=== PATIENT | female | born 1955 | race Caucasian/White ===

== ENCOUNTER 2020-11-11 16:57 | Inpatient (IN) | payer OTHER, SELFPAY ==
[2020-11-11] VITALS (11 sets, daily range): BP systolic 114–193; BP diastolic 62–114; PULSE 49–111; RESP 16–27; TEMP 36.3–36.6; O2SAT 95–100; BMI 23.1
--- NOTE | 2020-11-11 17:32 | ED_ITS ---
HPI - Neuro Symptoms/Deficit General Chief Complaint: Neuro Symptoms/Deficit Stated Complaint: REALLY DIZZY NUMBNESS RIGHT SIDE THROWING UP Time Seen by Provider: 11/11/20 17:30 History of Present Illness HPI Narrative: Patient is a 64-year-old female with no past medical history who presents with sudden onset of dizziness started right at 3:00 p.m. she said they got to their [place] states she started walking around she suddenly felt dizzy lightheaded very nauseous and right-sided weakness. No prior history of stroke or vertigo. She feels like her whole right side face arm and leg are numb tingly with decreased sensation. She is had been persistently nauseous with vomiting as well. She is otherwise alert and oriented. Last Observed Normal: 15:00 Timing confirmed by: spouse On Anticoagulants: No Related Data Allergies Allergy/AdvReac Type Severity Reaction Status Date / Time No Known Drug Allergies Allergy Verified 11/11/20 17:43 Review of Systems Review of Systems Narrative: GENERAL: Denies chills, fatigue, malaise, fever, sweats, travel HEENT: Denies sinus pain, ear pain, sore throat, difficulty swallowing, neck pain RESPIRATORY: Denies dyspnea, cough, wheezing, hemoptysis, sputum. CARDIOVASCULAR: Denies chest pain, palpitations, orthopnea, edema GASTROINTESTINAL: Denies nausea, vomiting, abdominal pain, diarrhea, constipation, melena. : Denies dysuria, frequency, incontinence, hematuria, urinary retention, flank pain. MUSCULOSKELETAL: Denies weakness, joint pain, or bony pain SKIN: No rash, no erythema, no pruritus NEUROLOGIC: See HPI PSYCHIATRIC: No concerning psychosocial issues. 12 point review of systems is negative except for those stated above and HPI Hematologic/Lymphatic On Anticoagulants: No Exam Initial Vital Signs Initial Vital Signs: Vital Signs Temperature 97.9 F 11/11/20 17:16 Pulse Rate 70 11/11/20 17:16 Respiratory Rate 16 11/11/20 17:16 Blood Pressure 172/102 H 11/11/20 17:16 Pulse Oximetry 97 11/11/20 17:16 64-year-old female appears un well. Nauseous difficulty keep eyes open HEENT: Head atraumatic,EOMI, no nystagmus, pupils reactive, face symmetric, moist mucous membranes CARDIOVASCULAR: Regular rate and rhythm without murmurs, rubs or gallops. RESPIRATORY: Breath sounds equal bilaterally, no wheezes rales or rhonchi. ABDOMEN: Soft, nontender. Normoactive bowel sounds all 4 quadrants. No guarding or rebound. EXTREMITIES: Normal range of motion, no clubbing or edema. Neurovascularly intact NEUROLOGICAL: Alert and oriented x4.Normal gait and speech. Cranial nerves II through XII grossly intact. Good ukwqns-fi-jnsr, good kwas-wk-iztq, strength equal bilaterally, no dysarthria or aphasia, sensation in tact to soft touch bilaterally, no visual changes, no facial droop, very slight right lower extremity drifting but does not come close to the gurney SKIN: Warm, dry, no laceration, no petechiae, no rashes or lesions. Scores NIH Stroke Scale Level of Conciousness: Alert, keenly responsive Ask month/age: Answers both questions correctly. Open/close eyes, close hand: Performs both tasks correctly Best gaze horizontal: Normal Visual ayers: No visual loss Facial palsy: Normal symetrical movement Left arm drift: No drift for full 10 sec Right arm drift: No drift for full 10 sec Left leg drift: No drift for full 5 sec Right leg drift: Drifts down, not to bed Limb ataxia: Absent Sensory on face/arms/legs: Normal, no sensory loss Best language: No aphasia, normal Dysarthria: Normal Extinction or inattention: No abnormality Total NIH Stroke scale score: 1 Course Orders Ordered: ED Orders 11/11/20 17:[address] angio head and neck Stat Urine Drug Screen, Rapid Stat EKG-12 Lead Stat 11/11/20 17:34 Complete Blood Count AUTO DIFF Stat Comprehensive Metabolic Panel Stat Partial Thromboplastin Time Stat Prothrombin Time INR Stat Troponin & CK Cardiac Panel Stat 11/11/20 17:41 MR stroke Stat 11/11/20 19:29 COVID19 - ADMIT ([employer] swab/PCR) Stat Sodium Chloride (Normal Saline 0.9%) 1,000 mls @ 150 mls/hr IV CONT MARIO Last Admin: 11/11/20 18:28 Dose: 150 mls/hr Documented by: KLEVER Discontinued Medications Labetalol HCl (Labetalol 20 Mg/4 Ml Syringe) 10 mg IV NOW ONE Stop: 11/11/20 18:41 Last Admin: 11/11/20 18:44 Dose: 10 mg Documented by: KLEVER Lorazepam (Lorazepam 2 Mg/Ml Inj) 0.5 mg IV NOW ONE Stop: 11/11/20 18:49 Last Admin: 11/11/20 19:07 Dose: 0.5 mg Documented by: GAURANG Ondansetron HCl (Ondansetron 4 Mg/2 Ml Inj) 4 mg IV NOW ONE Stop: 11/11/20 17:32 Last Admin: 11/11/20 17:43 Dose: 4 mg Documented by: CHARLOTTE Vital Signs Vital signs: Vital Signs - 8 hr 11/11/20 17:16 11/11/20 18:44 Temperature 97.9 F Pulse Rate 70 66 Respiratory Rate 16 Blood Pressure 172/102 H 175/114 H Pulse Oximetry 97 MDM - Neuro Symptoms/Deficit Lab Data Result diagrams: 11/11/20 17:34 11/11/20 17:34 Labs: Lab Results 11/11/20 11/11/20 11/11/20 Range/Units 17:34 17:34 17:34 WBC 5.3 (4.5-11.0) X10^3/uL RBC 5.00 (4.0-5.2) X10^6/uL Hgb 14.6 (12.0-16.0) g/dL Hct 42.4 (36-46) % MCV 84.8 (80-100) fL MCH 29.2 (26-34) PG MCHC 34.4 (30-36) % RDW 13.2 (11.6-14.8) % Plt Count 226 (150-400) X10^3/uL Neut % (Auto) 60.2 (50-75) % Lymph % (Auto) 28.3 (25-40) % [place] % (Auto) 8.4 (3-14) % Eos % (Auto) 1.9 L (2-4) % Baso % (Auto) 1.2 (0-2) % Neut # (Auto) 3200 (5789-2733) /uL Lymph # (Auto) 1500 (6104-6288) /uL [place] # (Auto) 400 (0-900) /uL Eos # (Auto) 100 (0-450) /uL Baso # (Auto) 100 (0-100) /uL PT 11.6 (10.1-12.7) SECONDS INR 1.0 (0.9-1.3) APTT 31 (26.4-36.2) SECONDS Sodium 141 (137-145) mmol/L Potassium 3.4 (3.4-5.1) mmol/L Chloride 106 (98-107) mmol/L Carbon Dioxide 25 (22-32) mmol/L BUN 10 (7-17) mg/dL Creatinine 0.66 (0.52-1.04) mg/dL Estimated GFR > 60.0 (>60) mL/min BUN/Creatinine Ratio 15.2 (6-22) Glucose 119 H (80-110) mg/dL Calcium 9.7 (8.4-10.2) mg/dL Total Bilirubin 0.6 (0.2-1.3) mg/dL AST 27 (14-36) IU/L ALT 17 (<35) IU/L Alkaline Phosphatase 112 (38-126) U/L Total Creatine Kinase 82 (30-135) U/L CK-MB (CK-2) TNP CK-MB (CK-2) Rel Index TNP Troponin I < 0.012 (0.01-0.034) ng/mL Total Protein 7.6 (6.3-8.2) g/dL Albumin 4.5 (3.5-5.0) g/dL Globulin 3.1 (1.7-4.1) g/dL Albumin/Globulin Ratio 1.5 (1.0-2.8) Point of Care Testing Glucose POC [address] scan - head: Radiologist's Impression: PROCEDURE: CT STROKE INDICATIONS: dizzy right sided weakness TECHNIQUE: Noncontrast 4.5 mm thick angled axial sections acquired from the foramen magnum to the vertex, with coronal reformats. For radiation dose reduction, the following was used: automated exposure control, adjustment of mA and/or kV according to patient size. COMPARISON: None. FINDINGS: Image quality: Excellent. CSF spaces: Basal cisterns are patent. No extra-axial fluid collections. The ventricles are symmetric in size and shape. Brain: No intracranial bleeds or masses. There is cerebral volume loss for age, with resultant ventricular and sulcal prominence. There are periventricular and deep white matter chronic small vessel ischemic changes. There is intracranial internal carotid artery atherosclerosis. Skull and face: Calvarium and visualized facial bones appear intact, without suspicious lesions. Sinuses: Visualized sinuses and mastoids are clear. IMPRESSION: 1. CT head without acute intracranial abnormalities or acute calvarial fractures. 2. Age-related senescent changes and sequela of chronic small vessel ischemic disease. This study fulfills neurological imaging criteria for inclusion or exclusion of acute stroke therapies based on available published neurological guidelines. Findings were discussed telephonically with Dr. Rosales at 1800 hrs. PST. Dictated by: Carrillo Hummel M.D. on 11/11/2020 at 17:59 CTA - brain/neck: Radiologist's Impression: PROCEDURE: CT ANGIO HEAD AND NECK INDICATIONS: dizzy right sided weakness TECHNIQUE: After the administration of intravenous contrast, 1 mm thick sections acquired from the aortic arch through the [place]. Post-contrast 4.5 mm thick sections then re-acquired from the foramen magnum to the vertex. 3-dimensional zvkvfab-mczpnjgrv-yorgisolwy (MIP) and/or volume rendering reformats were acquired of the central intracranial vasculature and neck separately. COMPARISON: None. FINDINGS: Image quality: Excellent. BRAIN: CSF spaces: Ventricles are stable in size and shape. Basal cisterns are patent. No extra-axial fluid collections. Brain: No midline shift. No intracranial bleeds or masses. [place]-white matter interface appears intact. Skull and face: Calvarium and facial bones appear intact, without suspicious lesions. Orbits appear normal. Sinuses: Sinuses and mastoids are clear. HEAD CT ANGIOGRAPHY: Anterior circulation: Intracranial internal carotid arteries appear patent without high-grade stenosis. There is flow/opacification within the paired anterior cerebral arteries. The flow within the middle cerebral arteries appears normal and symmetric. The anterior communicating artery is seen. No aneurysms are seen. No occlusion. Scattered atherosclerotic calcifications. Posterior circulation: Visualized portions of the vertebral arteries are patent and join to form a normal appearing basilar artery. No evidence for high-grade stenosis. No occlusions. There is opacification of the posterior cerebral arteries. No aneurysms are seen. NECK CT ANGIOGRAPHY: Carotid system: The great vessels demonstrate a conventional anatomy as they arise from the aortic arch. The origins of the common carotid arteries appear patent. The common carotid arteries demonstrate normal caliber and courses. The bifurcation regions are both widely patent. The internal carotid arteries demonstrate normal calibers and courses. Posterior circulation: There is high-grade stenosis at the origin of the left vertebral artery. Left vertebral artery is otherwise opacified. Origin of the right vertebral artery is widely patent. Right vertebral artery is well opacified. The more superior extracranial portions of both vertebral arteries also demonstrate normal courses and calibers. They join to form a normal appearing basilar artery. Soft tissues: Visualized neck soft tissues demonstrate no suspicious abnormalities. Bones: No suspicious bony lesions. Visualized cervical spine appears normally aligned. No acute compression fractures of the vertebral bodies. Multilevel cervical spondylosis. IMPRESSION: 1. Negative CT angiogram of the intracranial arterial vasculature. 2. High-grade stenosis at the origin of the left vertebral artery off the left subclavian artery. The left vertebral artery is otherwise opacified distally. 3. Otherwise, negative CT angiogram of the neck. Any quantitative measurements of stenosis were performed using NASCET criteria. Findings were discussed with Dr. Rosales at 1815 hrs. Dictated by: Carrillo Hummel M.D. on 11/11/2020 at 18:04 Approved by: Carrillo Hummel M.D. on 11/11/2020 at 18:18 MR stroke: Radiologist's Impression: PROCEDURE: MR STROKE Pre- and post-contrast brain MRI, non-contrast brain MR angiogram, pre- and po stcontrast neck MR angiogram INDICATIONS: dizzy right sided weakness TECHNIQUE: Brain: Noncontrast axial T1 spin echo, axial T2 fast spin echo, sagittal and axial FLAIR, coronal T2 fast spin echo, axial gradient echo, axial diffusion and ADC through the brain. After the administration of contrast, axial 3D VIBE of the cranial vasculature and brain. Brain MRA: Non-contrast 3-D time of flight MR angiogram, with multiple vicmeal-yoklnlpfb-jqestleovl (MIP) reformats performed. Neck MRA: Axial and sagittal TruFISP through the neck. Coronal dynamic MR angiogram during administration of contrast in the arterial and venous phases, with 3- dimenstional tnvlmmc-dlejxsnop-xofeakeksf (MIP) reformats constructed from subtraction images. COMPARISON: [facility], CT, CT ANGIO HEAD AND NECK, 11/11/2020, 17:34. FINDINGS: Image quality: Excellent. BRAIN: CSF spaces: Ventricles are normal in size and shape. Basal cisterns are patent. No extra-axial fluid collections. Brain: No intracranial bleeds or mass effects. [place]-white matter interface is normal. Diffusion weighted images show no acute ischemic insults. Brainstem appears normal. Normal intravascular flow voids are present. No abnormal intracranial enhancement. Skull and face: Calvarial marrow signal is normal. Orbits appear normal. Sinuses: Sinuses and mastoids are clear. BRAIN MR ANGIOGRAM: Anterior circulation: Intracranial internal carotid arteries are normal in size and enhancement. The flow within the paired anterior cerebral arteries is normal and symmetric. The flow within the middle cerebral arteries is normal and symmetric. The anterior communicating artery is seen. No high-grade stenoses, occlusions, or aneurysms. Posterior circulation: The visualized portions of the right vertebral artery demonstrate normal caliber, and join to form a normal appearing basilar artery. There is normal variant termination of the V4 segment as it communicates directly with segments of the posterior inferior cerebellar artery. No high-grade stenoses, occlusions, or aneurysms. NECK MR ANGIOGRAM: Carotids: Great vessels demonstrate a conventional anatomy as they arise from the aortic arch. The origins of the common carotid arteries appear patent. The calibers and courses of both common carotid arteries are normal. The bifurcation regions appear normal bilaterally. The internal carotid arteries demonstrate normal course and caliber. Posterior circulation: The origins of the vertebral arteries appear patent with mild to moderate stenosis at the origin of the left vertebral artery. There is also mild tortuosity of the proximal left vertebral artery just distal to the origin. More superior portions of both vertebral arteries demonstrate normal course and caliber, with the right vertebral artery joining to form a normal appearing basilar artery. The distal left vertebral artery/V4 segment demonstrates normal variant anatomy terminating directly with branches off the left posterior inferior cerebellar artery. Miscellaneous: Subclavian arteries appear patent. Pre-contrast images through the neck show no soft tissue abnormalities. IMPRESSION: BRAIN MRI: Negative brain MRI. No acute infarction/ischemia. BRAIN MR ANGIOGRAM: Negative MRA of the intracranial arterial vasculature. NECK MR ANGIOGRAM: Significant stenosis (50-70%) involving the origin of the left vertebral artery and proximal left vertebral artery. There is a dominant right vertebral artery with normal variant distal left vertebral artery terminating directly into branches off the left posterior inferior cerebellar artery. Dictated by: Carrillo Hummel M.D. on 11/11/2020 at 18:30 ECG Data Interpretation: Normal sinus rhythm rate 59 DC interval 152 QRS [address] changes or T-wave inversions no priors to compare MDM Narrative Medical decision making narrative: Patient presents as code stroke with dizziness weakness and difficulty standing. She has no real history of vertigo in the past. She has some right lower extremity drifting very minimal. But certainly has difficulty standing and ambulating and requires assistance. Differential included posterior stroke versus vertigo. NIH of 1--she actually has equal sensation to lower extremities but feels like they are numb and tingly. 1818-discussed case with Neurology, Dr. Valverde, she is certainly within the tPA window, however after neurology evaluation symptoms are more likely to be vertigo patient does not want tPA. She does recommend observation specially with the vertebral artery stenosis of 50-70%. The patient is also from out of town [place] no close follow-up they are going on the [place] to [place] later this week. Doctors Stickle updated patient's symptoms test results agree with observation Discharge Plan Departure Patient Disposition: Admitted as Observation Clinical Impression: Transient cerebral ischemia, Vertigo
--- NOTE | 2020-11-11 17:41 | DI.MRI.S_ITS ---
PROCEDURE: MR STROKE Pre- and post-contrast brain MRI, non-contrast brain MR angiogram, pre- and postcontrast neck MR angiogram INDICATIONS: dizzy right sided weakness TECHNIQUE: Brain: Noncontrast axial T1 spin echo, axial T2 fast spin echo, sagittal and axial FLAIR, coronal T2 fast spin echo, axial gradient echo, axial diffusion and ADC through the brain. After the administration of contrast, axial 3D VIBE of the cranial vasculature and brain. Brain MRA: Non-contrast 3-D time of flight MR angiogram, with multiple lliejdm-zilndelvy-aoutzzbnan (MIP) reformats performed. Neck MRA: Axial and sagittal TruFISP through the neck. Coronal dynamic MR angiogram during administration of contrast in the arterial and venous phases, with 3-dimenstional vchrrdo-shgntunij-eesltexekd (MIP) reformats constructed from subtraction images. COMPARISON: [facility], CT, CT ANGIO HEAD AND NECK, 11/11/2020, 17:34. FINDINGS: Image quality: Excellent. BRAIN: CSF spaces: Ventricles are normal in size and shape. Basal cisterns are patent. No extra-axial fluid collections. Brain: No intracranial bleeds or mass effects. [place]-white matter interface is normal. Diffusion weighted images show no acute ischemic insults. Brainstem appears normal. Normal intravascular flow voids are present. No abnormal intracranial enhancement. Skull and face: Calvarial marrow signal is normal. Orbits appear normal. Sinuses: Sinuses and mastoids are clear. BRAIN MR ANGIOGRAM: Anterior circulation: Intracranial internal carotid arteries are normal in size and enhancement. The flow within the paired anterior cerebral arteries is normal and symmetric. The flow within the middle cerebral arteries is normal and symmetric. The anterior communicating artery is seen. No high-grade stenoses, occlusions, or aneurysms. Posterior circulation: The visualized portions of the right vertebral artery demonstrate normal caliber, and join to form a normal appearing basilar artery. There is normal variant termination of the V4 segment as it communicates directly with segments of the posterior inferior cerebellar artery. No high-grade stenoses, occlusions, or aneurysms. NECK MR ANGIOGRAM: Carotids: Great vessels demonstrate a conventional anatomy as they arise from the aortic arch. The origins of the common carotid arteries appear patent. The calibers and courses of both common carotid arteries are normal. The bifurcation regions appear normal bilaterally. The internal carotid arteries demonstrate normal course and caliber. Posterior circulation: The origins of the vertebral arteries appear patent with mild to moderate stenosis at the origin of the left vertebral artery. There is also mild tortuosity of the proximal left vertebral artery just distal to the origin. More superior portions of both vertebral arteries demonstrate normal course and caliber, with the right vertebral artery joining to form a normal appearing basilar artery. The distal left vertebral artery/V4 segment demonstrates normal variant anatomy terminating directly with branches off the left posterior inferior cerebellar artery. Miscellaneous: Subclavian arteries appear patent. Pre-contrast images through the neck show no soft tissue abnormalities. IMPRESSION: BRAIN MRI: Negative brain MRI. No acute infarction/ischemia. BRAIN MR ANGIOGRAM: Negative MRA of the intracranial arterial vasculature. NECK MR ANGIOGRAM: Significant stenosis (50-70%) involving the origin of the left vertebral artery and proximal left vertebral artery. There is a dominant right vertebral artery with normal variant distal left vertebral artery terminating directly into branches off the left posterior inferior cerebellar artery. Dictated by: Carrillo Hummel M.D. on 11/11/2020 at 18:30 Approved by: Carrillo Hummel M.D. on 11/11/2020 at 18:44
[2020-11-11] MEDS: ONDANSETRON 4 MG/2 ML INJ IV (17:43)
[2020-11-11 17:47] LABS: Add Manual Diff / Slide Review NO; Basophils Absolute Auto 100 /uL (0-100); Basophils Percent Auto 1.2 % (0-2); Eosinophils Absolute Auto 100 /uL (0-450); Eosinophils Percent Auto 1.9 % (2-4); Hematocrit 42.4 % (36-46); Hemoglobin 14.6 g/dL (12.0-16.0); Lymphocytes Absolute Auto 1500 /uL (1100-4500); Lymphocytes Percent Auto 28.3 % (25-40); Mean Corpuscular HGB Conc 34.4 % (30-36); Mean Corpuscular Hemoglobin 29.2 PG (26-34); Mean Corpuscular Volume 84.8 fL (80-100); Monocytes Absolute Auto 400 /uL (0-900); Monocytes Percent Auto 8.4 % (3-14); Neutrophils Absolute Auto 3200 /uL (1500-7000); Neutrophils Percent Auto 60.2 % (50-75); Platelet Count 226 X10^3/uL (150-400); Red Cell Distribution Width 13.2 % (11.6-14.8); White Blood Cell Count 5.3 X10^3/uL (4.5-11.0)
[2020-11-11 17:58] LABS: Prothrombin Time 11.6 SECONDS (10.1-12.7)
[2020-11-11 18:01] LABS: PTT Partial Thromboplastin Tim 31 SECONDS (26.4-36.2)
[2020-11-11 18:05] LABS: Alanine Aminotransferase 17 IU/L (<35); Albumin 4.5 g/dL (3.5-5.0); Albumin Globulin Ratio 1.5 (1.0-2.8); Alkaline Phosphatase 112 U/L (38-126); Aspartate Aminotransferase 27 IU/L (14-36); BUN Creatinine Ratio 15.2 (6-22); Bilirubin Total 0.6 mg/dL (0.2-1.3); Blood Urea Nitrogen 10 mg/dL (7-17); Calcium 9.7 mg/dL (8.4-10.2); Carbon Dioxide 25 mmol/L (22-32); Chloride 106 mmol/L (98-107); Creatine Kinase 82 U/L (30-135); Estimated Glomerular Filt Rate > 60.0 mL/min (>60); Globulin 3.1 g/dL (1.7-4.1); Glucose 119 mg/dL (80-110); HEMOLYSIS < 15 (0-50); Potassium 3.4 mmol/L (3.4-5.1); Sodium 141 mmol/L (137-145); Total Protein 7.6 g/dL (6.3-8.2)
[2020-11-11 18:16] LABS: Troponin I < 0.012 ng/mL (0.01-0.034)
[2020-11-11] MEDS: SODIUM CHLORIDE 0.9% 1,000 ML 150 ML IV (18:28)
[2020-11-11] MEDS: ONDANSETRON 4 MG/2 ML INJ (18:36)
[2020-11-11] MEDS: LABETALOL 20 MG/4 ML SYRINGE 10 MG IV (18:44)
[2020-11-11] MEDS: LORazepam 2 MG/ML INJ 0.5 MG IV ×2 (19:07→22:15)
[2020-11-11] MEDS: METOCLOPRAMIDE 10 MG/2 ML INJ IV (19:56)
[2020-11-11] MEDS: PANTOPRAZOLE 40 MG VIAL IV (19:56)
--- NOTE | 2020-11-11 20:15 | PM.HP.1 ---
History of Present Illness History of Present Illness Date Patient Seen: 11/11/20 Time Patient Seen: 20:15 Chief complaint: REALLY DIZZY NUMBNESS RIGHT SIDE THROWING UP Narrative: This is a 64 year old female with no significant PMH who presents to the ED this evening with intractable N/V and Vertigo. She is also having some right arm weakness so the immediate concern was that she might be having a brainstem CVA. The onset was quite acute, while she was walking around her camp site at 4:00 p.m. today she was suddenly exquisitely nauseated and mildly vertiginous. Her brain MRI and CT scan shows no evidence of stroke. 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 Her mother had a stroke when she was much older. She has a strong family history of hyperlipidemia but she has no past medical history herself. She and her have been on the road camping from their home in [place] on the way to [place] this summer when they stopped here and she became ill. She has never had a stroke, hypertension, known to have hyperlipidemia or coronary disease in the past. She has been dosed with metoclopramide, meclizine, lorazepam, ondansetron without resolution of her nausea. Lorazepam seemed to be the most effective as she did look relaxed and asleep although she says that she never did fall asleep. The emergency department physician did speak with the on-call stroke neurologist who initially considered tPA but then after reviewing her exam decided that she should be observed tonight, receive aspirin and be treated as an acute vertigo patient. She has had no abdominal pain, diarrhea, GI bleeding or excess alcohol use. She had half a beer today at lunch and 1 beer yesterday. Her habit is an occasional beer or glass of wine. Patient History Medical History (Updated 11/11/20 @ 20:27 by Bj Mcgregor MD) No significant past medical history Surgical History (Updated 11/11/20 @ 20:27 by Bj Mcgregor MD) No significant past surgical history Family & Social History Family History (Updated 11/11/20 @ 20:28 by Bj Mcgregor MD) Mother CVA (cerebral vascular accident) Father CAD (coronary artery disease) Hip fracture Other Hyperlipidemia Social History: Her backup decision maker is her Bryce Matthew. Safety & Behavioral: Feels Safe in Current Yes Environment Been Physically Hurt or No Threatened By a Person Meds Home Medications and Allergies Allergies Allergy/AdvReac Type Severity Reaction Status Date / Time No Known Drug Allergies Allergy Verified 11/11/20 17:43 Review of Systems Review of Systems Narrative: + for Vertigo, lightheadedness and right arm tingling - for Chest Pain, Abdominal Pain, Bleeding, Headache, Seizures, joint pain, sore throat, cough, fevers, sweats, new allergies, difficulty talking Exam Vital Signs (past 8 hours): - 11/11/20 17:16 11/11/20 18:30 11/11/20 18:44 Temperature 97.9 F Pulse Rate 70 98 H 66 Respiratory Rate 16 16 Blood Pressure 172/102 H 175/114 H 175/114 H Pulse Oximetry 97 97 11/11/20 19:34 11/11/20 19:50 Temperature Pulse Rate 50 L 63 Respiratory Rate 16 Blood Pressure 146/95 H 146/95 H Pulse Oximetry 98 Oxygen Delivery Method Room Air Narrative Exam Narrative: She is alert and oriented x3. She appears to be in severe distress from nausea and mild vertigo. Pupils are equally round and reactive to light and accommodation. Extraocular muscles are intact Sclerae are pink and nonicteric Throat looks normal and is well hydrated No lymph nodes are felt head, neck, supraclavicular area JVD is less than 6 cm No carotid bruits are heard There is no thyromegaly Heart is regular rate and rhythm without murmur Lungs are clear to auscultation bilaterally Abdomen is soft, bowel sounds positive, nontender, no organomegaly. Extremities have no ankle edema neurological exam Cranial nerves 2-12 test intact, there is no tremor Sensation is symmetric in both upper and lower extremities Babinski's are upgoing bilaterally Deep tendon reflexes are symmetrically suppressed bilaterally Motor function is notable for 4/5 celebrity manager strength in the right hand and 5/5 in the left hand. There is no similar asymmetry in the lower extremities. Skin has no rash or jaundice. Objective Imaging MRI - head: Radiologist's impression: PROCEDURE: MR STROKE Pre- and post-contrast brain MRI, non-contrast brain MR angiogram, pre- and postcontrast neck MR angiogram INDICATIONS: dizzy right sided weakness TECHNIQUE: Brain: Noncontrast axial T1 spin echo, axial T2 fast spin echo, sagittal and axial FLAIR, coronal T2 fast spin echo, axial gradient echo, axial diffusion and ADC through the brain. After the administration of contrast, axial 3D VIBE of the cranial vasculature and brain. Brain MRA: Non-contrast 3-D time of flight MR angiogram, with multiple zbhmefe-fwsxdhtth-cwjoskhfru (MIP) reformats performed. Neck MRA: Axial and sagittal TruFISP through the neck. Coronal dynamic MR angiogram during administration of contrast in the arterial and venous phases, with 3-dimenstional owzgeiq-mbfbrgugc-aawxoenevi (MIP) reformats constructed from subtraction images. COMPARISON: [facility], CT, CT ANGIO HEAD AND NECK, 11/11/2020, 17:34. FINDINGS: Image quality: Excellent. BRAIN: CSF spaces: Ventricles are normal in size and shape. Basal cisterns are patent. No extra-axial fluid collections. Brain: No intracranial bleeds or mass effects. Ruvalcaba-white matter interface is normal. Diffusion weighted images show no acute ischemic insults. Brainstem appears normal. Normal intravascular flow voids are present. No abnormal intracranial enhancement. Skull and face: Calvarial marrow signal is normal. Orbits appear normal. Sinuses: Sinuses and mastoids are clear. BRAIN MR ANGIOGRAM: Anterior circulation: Intracranial internal carotid arteries are normal in size and enhancement. The flow within the paired anterior cerebral arteries is normal and symmetric. The flow within the middle cerebral arteries is normal and symmetric. The anterior communicating artery is seen. No high-grade stenoses, occlusions, or aneurysms. Posterior circulation: The visualized portions of the right vertebral artery demonstrate normal caliber, and join to form a normal appearing basilar artery. There is normal variant termination of the V4 segment as it communicates directly with segments of the posterior inferior cerebellar artery. No high-grade stenoses, occlusions, or aneurysms. NECK MR ANGIOGRAM: Carotids: Great vessels demonstrate a conventional anatomy as they arise from the aortic arch. The origins of the common carotid arteries appear patent. The calibers and courses of both common carotid arteries are normal. The bifurcation regions appear normal bilaterally. The internal carotid arteries demonstrate normal course and caliber. Posterior circulation: The origins of the vertebral arteries appear patent with mild to moderate stenosis at the origin of the left vertebral artery. There is also mild tortuosity of the proximal left vertebral artery just distal to the origin. More superior portions of both vertebral arteries demonstrate normal course and caliber, with the right vertebral artery joining to form a normal appearing basilar artery. The distal left vertebral artery/V4 segment demonstrates normal variant anatomy terminating directly with branches off the left posterior inferior cerebellar artery. Miscellaneous: Subclavian arteries appear patent. Pre-contrast images through the neck show no soft tissue abnormalities. IMPRESSION: BRAIN MRI: Negative brain MRI. No acute infarction/ischemia. BRAIN MR ANGIOGRAM: Negative MRA of the intracranial arterial vasculature. NECK MR ANGIOGRAM: Significant stenosis (50-70%) involving the origin of the left vertebral artery and proximal left vertebral artery. There is a dominant right vertebral artery with normal variant distal left vertebral artery terminating directly into branches off the left posterior inferior cerebellar artery. Dictated by: Carrillo Hummel M.D. on 11/11/2020 at 18:30 CT scan - head: Radiologist's impression: PROCEDURE: CT ANGIO HEAD AND NECK INDICATIONS: dizzy right sided weakness TECHNIQUE: After the administration of intravenous contrast, 1 mm thick sections acquired from the aortic arch through the [place] of [place]. Post-contrast 4.5 mm thick sections then re-acquired from the foramen magnum to the vertex. 3-dimensional xnjojfk-babhbhbur-eluupslsmv (MIP) and/or volume rendering reformats were acquired of the central intracranial vasculature and neck separately. COMPARISON: None. FINDINGS: Image quality: Excellent. BRAIN: CSF spaces: Ventricles are stable in size and shape. Basal cisterns are patent. No extra-axial fluid collections. Brain: No midline shift. No intracranial bleeds or masses. Ru[place]-white matter interface appears intact. Skull and face: Calvarium and facial bones appear intact, without suspicious lesions. Orbits appear normal. Sinuses: Sinuses and mastoids are clear. HEAD CT ANGIOGRAPHY: Anterior circulation: Intracranial internal carotid arteries appear patent without high-grade stenosis. There is flow/opacification within the paired anterior cerebral arteries. The flow within the middle cerebral arteries appears normal and symmetric. The anterior communicating artery is seen. No aneurysms are seen. No occlusion. Scattered atherosclerotic calcifications. Posterior circulation: Visualized portions of the vertebral arteries are patent and join to form a normal appearing basilar artery. No evidence for high-grade stenosis. No occlusions. There is opacification of the posterior cerebral arteries. No aneurysms are seen. NECK CT ANGIOGRAPHY: Carotid system: The great vessels demonstrate a conventional anatomy as they arise from the aortic arch. The origins of the common carotid arteries appear patent. The common carotid arteries demonstrate normal caliber and courses. The bifurcation regions are both widely patent. The internal carotid arteries demonstrate normal calibers and courses. Posterior circulation: There is high-grade stenosis at the origin of the left vertebral artery. Left vertebral artery is otherwise opacified. Origin of the right vertebral artery is widely patent. Right vertebral artery is well opacified. The more superior extracranial portions of both vertebral arteries also demonstrate normal courses and calibers. They join to form a normal appearing basilar artery. Soft tissues: Visualized neck soft tissues demonstrate no suspicious abnormalities. Bones: No suspicious bony lesions. Visualized cervical spine appears normally aligned. No acute compression fractures of the vertebral bodies. Multilevel cervical spondylosis. IMPRESSION: 1. Negative CT angiogram of the intracranial arterial vasculature. 2. High-grade stenosis at the origin of the left vertebral artery off the left subclavian artery. The left vertebral artery is otherwise opacified distally. 3. Otherwise, negative CT angiogram of the neck. Any quantitative measurements of stenosis were performed using NASCET criteria. Findings were discussed with Dr. Rosales at 1815 hrs. Dictated by: Carrillo Hummel M.D. on 11/11/2020 at 18:04 Labs Result Diagrams: 11/11/20 17:34 11/11/20 17:34 Labs: Laboratory Results - last 24 hr 11/11/20 11/11/20 11/11/20 17:34 17:34 17:34 WBC 5.3 RBC 5.00 Hgb 14.6 Hct 42.4 MCV 84.8 MCH 29.2 MCHC 34.4 RDW 13.2 Plt Count 226 Neut % (Auto) 60.2 Lymph % (Auto) 28.3 Wise % (Auto) 8.4 Eos % (Auto) 1.9 L Baso % (Auto) 1.2 Neut # (Auto) 3200 Lymph # (Auto) 1500 Wise # (Auto) 400 Eos # (Auto) 100 Baso # (Auto) 100 PT 11.6 INR 1.0 APTT 31 Sodium 141 Potassium 3.4 Chloride 106 Carbon Dioxide 25 BUN 10 Creatinine 0.66 Estimated GFR > 60.0 BUN/Creatinine Ratio 15.2 Glucose 119 H Calcium 9.7 Total Bilirubin 0.6 AST 27 ALT 17 Alkaline Phosphatase 112 Total Creatine Kinase 82 CK-MB (CK-2) TNP CK-MB (CK-2) Rel Index TNP Troponin I < 0.012 Total Protein 7.6 Albumin 4.5 Globulin 3.1 Albumin/Globulin Ratio 1.5 Assessment & Plan Assessment & Plan narrative: This is a 64 year old female with no significant PMH who presents to the ED this evening with intractable N/V and Vertigo. She also has mild right arm weakness. Severe Nausea -Continue Obervation with concern for Severe Vertigo or Brainstem CVA -No abdominal tenderness or pain. -Check Lipase. Alcohol intake is only 1/2 to 1 beer per day. -continue IV fluid support while on bowel rest. -continue lorazepam metoclopramide, ondansetron, meclizine, Phenergan as needed. -she has no history of marijuana use. She has no history of pancreatitis. She has no history of coronary disease and has had no chest pain. -troponin is less than 0.012. Order EKG. Acute Vertigo -Given Lorazepam and Meclizine without complete effect -IVF while NPO -no signs on imaging of brain stem CVA but that remains a concern with the notable right upper extremity assymmetric celebrity manager strength. 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 to give Aspirin and observe -tPA was considered and decided against. Left Vertebral Artery Stenosis -Lipids ordered -Aspirin and Lipitor ordered Her backup decision maker is her Bryce Matthew Her Covid test is pending She will be on Lovenox for DVT prevention
[2020-11-11] MEDS: MECLIZINE HCL 12.5 MG TABLET 50 MG PO (20:17)
[2020-11-11 20:27] LABS: Lipase 82 U/L (23-300)
[2020-11-11 20:33] LABS: COVID19 - ADMIT (NP swab/PCR) Negative (Negative)
[2020-11-11 20:35] LABS: Ur Creatinine Normal (Normal); Ur Specific Gravity Normal (Normal); Urine pH Normal (Normal)
[2020-11-11 20:36] LABS: UR Morphine/Opiate cutoff 300 Negative (Negative); Urine Amphetamines Negative (Negative); Urine Barbiturates Negative (Negative); Urine Benzodiazepines Negative (Negative); Urine Cocaine Negative (Negative); Urine MDMA Negative (Negative); Urine Methadone Negative (Negative); Urine Methamphetamines Negative (Negative); Urine Oxycodone Negative (Negative); Urine Phencyclidine Negative (Negative); Urine Tetrahydrocannabinol Negative (Negative); Urine Tricyclic Antidepressant Negative (Negative)
[2020-11-11 20:50] LABS: Bacteria Urine None Seen
[2020-11-11 21:22] LABS: Culture Indicated Urine Cult Not Indicated; RBC Urine 0-1/HPF (0-5/HPF); WBC Urine 0-1/HPF (0-5/HPF)
[2020-11-11] MEDS: DEXTROSE 5%-0.9% NS 1,000 ML 100 ML IV (21:30)
[2020-11-11] MEDS: ATORVASTATIN 20 MG TABLET 80 MG PO (22:17)
--- NOTE | 2020-11-11 23:15 | PC.NURSE ---
Admit/Evening Shift Note- Patiet arrived to room via stretcher from ER at 2115. Admit questions done, no home medications, physical assessment done, and skin check completed. Patient oriented to bed and bed controls, room, lights, phone, bathroom, and call graham/tv remote. PRN IV ativan given for nausea and dry heaves. Patient tolerated. Patient agrees to call for assistance. Safety measures in place. Call graham and phone within reach. will continue to monitor.
[2020-11-12 01:18] VITALS: BP 126/74; PULSE 57; RESP 18; TEMP 36.2; O2SAT 93
[2020-11-12] MEDS: METOCLOPRAMIDE 10 MG/2 ML INJ IV (01:25)
[2020-11-12] MEDS: PANTOPRAZOLE DR 20 MG TABLET PO (05:19)
[2020-11-12 05:40] VITALS: BP 132/77; PULSE 62; RESP 20; TEMP 36.2; O2SAT 98
[2020-11-12 05:51] LABS: Add Manual Diff / Slide Review NO; Basophils Absolute Auto 0 /uL (0-100); Basophils Percent Auto 0.4 % (0-2); Eosinophils Absolute Auto 0 /uL (0-450); Hematocrit 37.6 % (36-46); Lymphocytes Absolute Auto 900 /uL (1100-4500); Lymphocytes Percent Auto 16.1 % (25-40); Mean Corpuscular HGB Conc 34.5 % (30-36); Mean Corpuscular Hemoglobin 28.9 PG (26-34); Mean Corpuscular Volume 83.8 fL (80-100); Monocytes Absolute Auto 400 /uL (0-900); Monocytes Percent Auto 7.8 % (3-14); Neutrophils Absolute Auto 4000 /uL (1500-7000); Neutrophils Percent Auto 75.7 % (50-75); Platelet Count 236 X10^3/uL (150-400); Red Blood Cell Count 4.49 X10^6/uL (4.0-5.2); Red Cell Distribution Width 13.3 % (11.6-14.8); White Blood Cell Count 5.4 X10^3/uL (4.5-11.0)
[2020-11-12 06:01] LABS: Alanine Aminotransferase 14 IU/L (<35); Albumin 3.8 g/dL (3.5-5.0); Albumin Globulin Ratio 1.4 (1.0-2.8); Alkaline Phosphatase 77 U/L (38-126); Aspartate Aminotransferase 20 IU/L (14-36); BUN Creatinine Ratio 17.9 (6-22); Bilirubin Total 0.4 mg/dL (0.2-1.3); Blood Urea Nitrogen 10 mg/dL (7-17); Calcium 9.2 mg/dL (8.4-10.2); Carbon Dioxide 24 mmol/L (22-32); Chloride 109 mmol/L (98-107); Estimated Glomerular Filt Rate > 60.0 mL/min (>60); Globulin 2.7 g/dL (1.7-4.1); Glucose 142 mg/dL (80-110); HEMOLYSIS < 15 (0-50); Potassium 3.7 mmol/L (3.4-5.1); Sodium 140 mmol/L (137-145); Total Protein 6.5 g/dL (6.3-8.2)
[2020-11-12 06:11] LABS: Troponin I < 0.012 ng/mL (0.01-0.034)
[2020-11-12] MEDS: DEXTROSE 5%-0.9% NS 1,000 ML 100 ML IV (07:43)
[2020-11-12 08:27] VITALS: BP 126/78; PULSE 63; RESP 16; TEMP 36.6; O2SAT 96
--- NOTE | 2020-11-12 08:36 | DI.MRI.S_ITS ---
PROCEDURE: MR STROKE Pre- and post-contrast brain MRI, non-contrast brain MR angiogram, pre- and postcontrast neck MR angiogram INDICATIONS: stroke TECHNIQUE: Brain: Noncontrast axial T1 spin echo, axial T2 fast spin echo, sagittal and axial FLAIR, coronal T2 fast spin echo, axial gradient echo, axial diffusion and ADC through the brain. After the administration of contrast, axial 3D VIBE of the cranial vasculature and brain. Brain MRA: Non-contrast 3-D time of flight MR angiogram, with multiple cdsnljw-sriitydlk-btxxlwlcxb (MIP) reformats performed. Neck MRA: Axial and sagittal TruFISP through the neck. Coronal dynamic MR angiogram during administration of contrast in the arterial and venous phases, with 3-dimenstional pflksdu-ozsmmmypj-zbnwyyfnou (MIP) reformats constructed from subtraction images. COMPARISON: [facility], CT, CT ANGIO HEAD AND NECK, 11/11/2020, 17:34. [facility], MR, MR STROKE, 11/11/2020, 17:52. FINDINGS: Image quality: Excellent. BRAIN: The ventricular system and cortical sulci demonstrate atrophy, consistent for the patient's stated age. There are areas of increased T2/FLAIR signal intensity within the periventricular and subcortical white matter. There is no acute intra-or extra axial fluid collection. No acute hemorrhage, mass lesion or midline shift. Diffusion weighted images demonstrate hyperintense signal within the medulla/brainstem demonstrating hypointense ADC signal. While it is noted that there is ill-defined hypodensity within this region on the CT head exam of 11/11/2020, MRI on 11/11/2020 demonstrated a ill-defined, subtle restricted diffusion within this region without clearly visualized hypointense ADC signal. . BRAIN MR ANGIOGRAM: Anterior circulation: Intracranial internal carotid arteries are normal in size and enhancement. The flow within the paired anterior cerebral arteries is normal and symmetric. The flow within the middle cerebral arteries is normal and symmetric. The anterior communicating artery is seen. No stenoses, occlusions, or aneurysms. Posterior circulation: The visualized portions of the vertebral arteries demonstrate normal caliber, and join to form a normal appearing basilar artery. The flow within the posterior cerebral arteries is normal and symmetric. No stenoses, occlusions, or aneurysms. There is a right vertebral artery dominance. Left vertebral artery ends in PICA. There is loss of signal within a distal portion of the left vertebral artery unchanged compared to prior MRI. NECK MR ANGIOGRAM: Carotids: Great vessels demonstrate a conventional anatomy as they arise from the aortic arch. The origins of the common carotid arteries appear patent. The calibers and courses of both common carotid arteries are normal. The bifurcation regions appear normal bilaterally. The internal carotid arteries demonstrate normal course and caliber. Posterior circulation: The origins of the vertebral arteries appear patent. More superior portions of both vertebral arteries demonstrate normal course and caliber, and join to form a normal appearing basilar artery. Miscellaneous: Subclavian arteries appear patent. Pre-contrast images through the neck show no soft tissue abnormalities. IMPRESSION: 1. Prominent appearance of restricted diffusion within the medulla/brainstem consistent with acute ischemia appearing more prominent compared to prior exam. No superimposed hemorrhage. Given appearance of relative hypodensity within this region on CT head, this could represent a focus of new ischemia up on superimposed old infarction versus artifact in this region. 2. Decreased signal within the distal aspect of the left vertebral artery, unchanged from prior MRI of 11/11/2020. This could represent occlusion with distal reconstitution or slow flow. It is noted that flow is identified on CT neck of 11/11/2020. 3. No areas of hemodynamically significant stenosis, vascular occlusion or aneurysmal dilation within the neck vasculature. Dictated by: La Huerta M.D. on 11/12/2020 at 13:42 Approved by: La Huerta M.D. on 11/12/2020 at 14:08
--- NOTE | 2020-11-12 09:37 | PC.NURSE ---
Day shift: Pt back on AC unit at approx 0937 from MRI. BAck on tele, IV fluids, and SCD's in place. Call light in reach.
[2020-11-12] MEDS: ENOXAPARIN 40 MG/0.4 ML SYRINGE SUBCUT (09:49)
[2020-11-12] MEDS: ASPIRIN EC 81 MG TABLET PO (09:50)
--- NOTE | 2020-11-12 10:00 | DI.ECHO.S_ITS ---
[place] +---------+ [facility] +---------+ : : [address] : : : : [id number] : : : : Phone: [phone] Echocardiogram Report + + :Name: CAMILLE PRIETO Study Date: 11/12/2020 Height: 64 in : :[facility] ReadingLocation: Weight: 134 lb : : Gender: Female BSA: 1.6 m2 : :: 1955 Age: 64 yrs BP: 126/74 mmHg: :Reason For Study: CVA : :Ordering Physician: IDANIA, : :LOI Performed By: Ivory Ventura : :Referring: LOI EMERSON : + + Interpretation Summary The patient was in sinus bradycardia with heart rates between 54-60 bpm during the exam. The left ventricle is normal in size and wall thickness. The ejection fraction is estimated to be 60-65%. No obvious LV apical clot seen. The right ventricle is normal in size and function. Injection of contrast documented no interatrial shunt. There is mild tricuspid regurgitation. The right ventricular systolic pressure is estimated to be at least 29 mmHg based on an estimated right atrial pressure of 3 mm Hg. The ascending aorta is mildly enlarged. No significant atherosclerotic plaque in the aortic arch seen. Procedure: A two-dimensional transthoracic echocardiogram with color flow and Doppler was performed. The study quality was technically adequate. There is no prior echocardiogram noted for this patient. A saline contrast injection was performed to assess for cardiac shunting. The patient was in sinus bradycardia with heart rates between 54-60 bpm during the exam. Left Ventricle: The left ventricle is normal in size and wall thickness. There is no thrombus. The ejection fraction is estimated to be 60-65%. There are no focal wall motion abnormalities. MV E/A: 1.1 Med Peak E' Francisco Javier: 10.0 cm/sec E/E' med: 9.7. Right Ventricle: The right ventricle is normal in size and function. Atria: The left atrial size is normal. The right atrium is normal in size. Bubble study was captured on image frame(s) # 93. Injection of contrast documented no interatrial shunt. There is no Doppler evidence for an interatrial shunt. Mitral Valve: There is mild mitral annular calcification. There is trace mitral regurgitation. Aortic Valve: The aortic valve is trileaflet. The aortic valve opens well. The aortic valve is slightly calcified. There is no aortic valve stenosis. There is trace aortic regurgitation. Tricuspid Valve: The tricuspid valve is normal. There is mild tricuspid regurgitation. The right ventricular systolic pressure is estimated to be at least 29 mmHg based on an estimated right atrial pressure of 3 mm Hg. Pulmonic Valve: The pulmonic valve is not well seen, but is grossly normal. There is trace pulmonic regurgitation. Great Vessels: The aortic root is normal size. The ascending aorta is mildly enlarged. The IVC is of normal diameter and collapses greater than 50% with a sniff. This suggests a low right atrial pressure of 3 mm Hg. Pericardium/ Pleura There is no pericardial effusion. There is no pleural effusion. MMode/2D Measurements & Calculations LVIDd: 4.3 cm LVOT diam: 1.8 cm LVIDs: 2.7 cm Ao root diam: 3.3 cm FS: 36.8 % asc Aorta Diam: 3.7 cm IVSd: 0.80 cm Ao Arch Diam (Prox Trans): 3.1 cm LVPWd: 0.66 cm LV lopez. diameter/BSA (cm/m^2): 2.6 LV sys. diameter/BSA (cm/m^2): 1.7 LA A2 area: 14.3 cm2 RA long axis: 5.3 cm LA A4 area: 14.0 cm2 RA area: 15.3 cm2 LA length (vol): 4.8 cm RA vol: 37.8 ml LA vol: 35.0 ml RA : 22.9 ml/m2 LA vol index: 21.2 ml/m2 IVC diam: 1.7 cm RVD1 (basal): 3.2 cm TAPSE: 3.1 cm Doppler Measurements & Calculations Ao V2 max: 132.2 cm/sec LVOT Max Francisco Javier: 107.2 cm/sec Ao V2 mean: 92.4 cm/sec LV V1 max P.6 mmHg Ao max P.0 mmHg LV V1 VTI: 21.8 cm Ao mean P.8 mmHg ASHLEIGH(I,D): 1.8 cm2 Ao V2 VTI: 29.6 cm ASHLEIGH(V,D): 2.0 cm2 sev ratio: 0.74 ASHLEIGH indexed to BSA (cm^2/m^2): 1.1 MV E max francisco javier: 97.1 cm/sec TR max francisco javier: 253.7 cm/sec MV A max francisco javier: 86.6 cm/sec TR max P.8 mmHg MV E/A: 1.1 PA V2 max: 93.0 cm/sec Med Peak E' Francisco Javier: 10.0 cm/sec PA V2 mean: 60.2 cm/sec E/E' med: 9.7 PA mean P.7 mmHg Lat Peak E' Francisco Javier: 13.4 cm/sec PA pr(Accel): 31.0 mmHg E/E' lat: 7.3 E/e' average: 8.5 MV dec time: 0.18 sec SV(LVOT): 54.4 ml Reading Physician:01:28 PM
--- NOTE | 2020-11-12 10:59 | P.PN_ITS ---
Subjective Subjective Date Patient Seen: 11/12/20 Time Patient Seen: 08:00 Interval history: Patient initially seen at 8am. She tells me that at some point overnight, she can not say what time, she felt weakness on her right side. She could not move her right hand, her right leg. She started slurring speech, and felt her tongue was heavy. She was asked again what time this started and said some time in the middle of the night. No NIH performed overnight. She was ordered for aspirin and statin. Immediately I called telestroke and spoke with them at 830am, who recommended reimaging the head and neck vasculature. CT scan was down, so stat MRI was ordered. Spoke with Dr. Bentley at 10:20a, neuroradiologist, who notes there is a brainstem stroke. They note continued finding of vertebral artery stenosis on the left, but no other evidence of large artery stenosis or clot. Spoke with Dr. Zapien, teleroke, who recommended dual antiplatelet therapy, high dose statin, and agreed since her symptoms started yesterday afternoon she was outside window for TPA, and because she had good collateral flow from the other vertebral artery there is no indication for IR revascularization. Spoke with patient and about these findings. Otherwise she continues to have nausea and vertigo. Exam Vital Signs (past 8 hours): - 11/12/20 05:40 11/12/20 08:27 Temperature 97.1 F L 97.9 F Pulse Rate 62 63 Respiratory Rate 20 16 Blood Pressure 132/77 126/78 Pulse Oximetry 98 96 Oxygen Delivery Method Room Air Oxygen Flow Rate 0 Narrative Exam Narrative: GEN: no acute distress. HEENT: PERRL, moist mucous membranes NECK: trachea midline, no JVD CV: regular bradycardia, with no murmurs PULM: clear to auscultation bilaterally ABD: soft, bowel sounds positive, nontender, no organomegaly. EXT: wram and well perfused with no edema NEURO: patient has right sided facial droop, speech is slightly slurred, sensation in face is normal, and she is able to smile and close eyes with normal strength. Weakness in right shoulder 2/5, right upper extremity 1/5, right lower extremity 1/5. Can not lift extremities off bed, but can wriggle them slightly. Sensation diminished in right upper and lower extremity. Left upper and lower extremity with normal strength in upper and lower extremities with no drift noted SKIN: no rashes PSYCH: cooperative, pleasant Objective Labs Result Diagrams: 11/12/20 05:20 11/12/20 05:20 Labs: Laboratory Results - last 24 hr 11/11/20 11/11/20 11/11/20 17:34 17:34 17:34 WBC 5.3 RBC 5.00 Hgb 14.6 Hct 42.4 MCV 84.8 MCH 29.2 MCHC 34.4 RDW 13.2 Plt Count 226 Neut % (Auto) 60.2 Lymph % (Auto) 28.3 Humphreys % (Auto) 8.4 Eos % (Auto) 1.9 L Baso % (Auto) 1.2 Neut # (Auto) 3200 Lymph # (Auto) 1500 Humphreys # (Auto) 400 Eos # (Auto) 100 Baso # (Auto) 100 PT 11.6 INR 1.0 APTT 31 Sodium 141 Potassium 3.4 Chloride 106 Carbon Dioxide 25 BUN 10 Creatinine 0.66 Estimated GFR > 60.0 BUN/Creatinine Ratio 15.2 Glucose 119 H Calcium 9.7 Total Bilirubin 0.6 AST 27 ALT 17 Alkaline Phosphatase 112 Total Creatine Kinase 82 CK-MB (CK-2) TNP CK-MB (CK-2) Rel Index TNP Troponin I < 0.012 Total Protein 7.6 Albumin 4.5 Globulin 3.1 Albumin/Globulin Ratio 1.5 Lipase Urine RBC Urine WBC Urine Bacteria Ur Culture Indicated? U Opiates 300ng/mL cut Ur Oxycodone Screen Urine Methadone Screen Ur Barbiturates Screen U Tricyclic Antidepress Ur Phencyclidine Scrn Ur Amphetamines Screen U Methamphetamines Scrn Ur MDMA Scrn (Ecstasy) U Benzodiazepines Scrn Urine Cocaine Screen U Marijuana (THC) Screen SARS-CoV-2 (PCR) 11/11/20 11/11/20 11/11/20 17:34 19:29 20:20 WBC RBC Hgb Hct MCV MCH MCHC RDW Plt Count Neut % (Auto) Lymph % (Auto) Humphreys % (Auto) Eos % (Auto) Baso % (Auto) Neut # (Auto) Lymph # (Auto) Humphreys # (Auto) Eos # (Auto) Baso # (Auto) PT INR APTT Sodium Potassium Chloride Carbon Dioxide BUN Creatinine Estimated GFR BUN/Creatinine Ratio Glucose Calcium Total Bilirubin AST ALT Alkaline Phosphatase Total Creatine Kinase CK-MB (CK-2) CK-MB (CK-2) Rel Index Troponin I Total Protein Albumin Globulin Albumin/Globulin Ratio Lipase 82 Urine RBC Urine WBC Urine Bacteria Ur Culture Indicated? U Opiates 300ng/mL cut Negative Ur Oxycodone Screen Negative Urine Methadone Screen Negative Ur Barbiturates Screen Negative U Tricyclic Antidepress Negative Ur Phencyclidine Scrn Negative Ur Amphetamines Screen Negative U Methamphetamines Scrn Negative Ur MDMA Scrn (Ecstasy) Negative U Benzodiazepines Scrn Negative Urine Cocaine Screen Negative U Marijuana (THC) Screen Negative SARS-CoV-2 (PCR) Negative 11/11/20 11/12/20 11/12/20 20:20 05:20 05:20 WBC 5.4 RBC 4.49 Hgb 13.0 Hct 37.6 MCV 83.8 MCH 28.9 MCHC 34.5 RDW 13.3 Plt Count 236 Neut % (Auto) 75.7 H Lymph % (Auto) 16.1 L Humphreys % (Auto) 7.8 Eos % (Auto) 0.0 L Baso % (Auto) 0.4 Neut # (Auto) 4000 Lymph # (Auto) 900 L Humphreys # (Auto) 400 Eos # (Auto) 0 Baso # (Auto) 0 PT INR APTT Sodium 140 Potassium 3.7 Chloride 109 H Carbon Dioxide 24 BUN 10 Creatinine 0.56 Estimated GFR > 60.0 BUN/Creatinine Ratio 17.9 Glucose 142 H Calcium 9.2 Total Bilirubin 0.4 AST 20 ALT 14 Alkaline Phosphatase 77 Total Creatine Kinase CK-MB (CK-2) CK-MB (CK-2) Rel Index Troponin I < 0.012 Total Protein 6.5 Albumin 3.8 Globulin 2.7 Albumin/Globulin Ratio 1.4 Lipase Urine RBC 0-1/hpf Urine WBC 0-1/hpf Urine Bacteria None seen Ur Culture Indicated? Cult not indicated U Opiates 300ng/mL cut Ur Oxycodone Screen Urine Methadone Screen Ur Barbiturates Screen U Tricyclic Antidepress Ur Phencyclidine Scrn Ur Amphetamines Screen U Methamphetamines Scrn Ur MDMA Scrn (Ecstasy) U Benzodiazepines Scrn Urine Cocaine Screen U Marijuana (THC) Screen SARS-CoV-2 (PCR) PFSH Medical History (Updated 11/11/20 @ 20:27 by Bj Mcgregor MD) No significant past medical history Surgical History (Updated 11/11/20 @ 20:27 by Bj Mcgregor MD) No significant past surgical history Family History (Updated 11/11/20 @ 20:28 by Bj Mcgregor MD) Mother CVA (cerebral vascular accident) Father CAD (coronary artery disease) Hip fracture Other Hyperlipidemia Social History household members: spouse Smoking Status: Former smoker alcohol intake: current Assessment & Plan Assessment & Plan narrative: 64W with no significant PMH, on no meds who presented with vertigo, nausea, right sided weakness and numbness found to have acute CVA of the brainstem. 1. 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 Bentley only significant stenosis was in the left vertebral artery, v1, near subclavian, rest of brain had good collateral flow, discussed with teleneurologist and no IR or surgical intervention indicated as there is adequate collaterals -contine dual antiplatelet for 21 days with asa/plavix, then lifelong aspirin, continue high dose atorvastatin -ordered for a1c and lipids for risk stratification -ordered for echo -on telemetry to monitor for arrhythmia -ordered for PT/OT/speech therapy -dispo pending therapy evaluation -continue lorazepam metoclopramide, ondansetron, meclizine, Phenergan as needed. 2. Left Vertebral Artery Stenosis -Lipids ordered -aspirin, plavix ordered Proxy is her Bryce Matthew DVT ppx: lovenox 40u sc CODE: FULL Quality VTE Deep Vein Thrombosis/Pulmonary Embolism Present on Admission: No
[2020-11-12] MEDS: CLOPIDOGREL 75 MG TABLET PO (11:01)
--- NOTE | 2020-11-12 11:24 | PC.NURSE ---
Day shift: Dr Parks informed of Pt's HR of 47 sustained at approx 1125.
[2020-11-12 11:30] LABS: Cholesterol 215 mg/dL (140-199); HDL Cholesterol 46 mg/dL (40-60); LDL Cholesterol Calculated 153 mg/dL (<100); Triglycerides 78 mg/dL (35-150)
[2020-11-12 11:32] LABS: Hemoglobin A1C% w Est Avg Glu 4.7 % (4.0-6.0)
--- NOTE | 2020-11-12 11:44 | PC.NURSE ---
Day shift: On morning assessment Pt's NIH 8. RAJESH and BLE weakness with almost no movement RUE. Speech slurred but did well with NIH paper sheet. Dr Parks informed of these findings and new orders were placed (MRI). Pt is asleep at this time w/ no s/s of pain or discomfort. HR 71 at this time (1150). PT has not voided on this shift and denies feeling the need to void at this time. Will bladder scan and report to MD. Call light in reach. Spouse in room for support. Both are aware of stroke findings.
--- NOTE | 2020-11-12 12:50 | PT.IIE ---
Medical History (Last Updated 11/11/20 @ 20:27 by Bj Mcgregor MD) No significant past medical history Physical Therapy Inpatient Evaluation/Re-Eval M1 PT/OT-IP Prior Functional Status Start: 11/12/20 14:10 Freq: NEEDED Status: Active Protocol: Document 11/12/20 14:11 [facility] (Rec: 11/12/20 14:37 [facility] [id number]) Medical Review Prior Functional Status Medical History Reviewed Yes Communication Independent. Mobility and Gait Completely independent with no devices. Activities of Daily Living and IADL's Completely independent for all ADL and IADl needs. 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 Social History Household Members spouse Living Arrangements RV M2 PT-IP Current Condition Start: 11/12/20 16:25 Freq: NEEDED Status: Active Protocol: Document 11/12/20 12:50 AB (Rec: 11/12/20 16:36 AB [id number]) Physical Therapy Current Condition Current Condition Evaluation Date 11/12/20 Treatment Diagnosis Brainstem CVA w/ R sided weakness; difficulty in walking Onset Date 11/11/20 Precautions Other Precautions falls M3 PT-IP Subjective Start: 11/12/20 16:25 Freq: NEEDED Status: Active Protocol: Document 11/12/20 12:50 AB (Rec: 11/12/20 16:36 AB [id number]) Subjective Physical Therapy Visit Type Type Initial Evaluation Visit Start Time 12:50 Visit Stop Time 13:20 Total Visit Minutes 30 Number of RAILROAD SURVEYOR Visits 0 Physical Therapy Visit Comments Patient Comments agreed to do PT; can be impulsive M4 PT-IP Mobility and Gait Start: 11/12/20 16:25 Freq: NEEDED Status: Active Protocol: Document 11/12/20 12:50 AB (Rec: 11/12/20 16:36 AB [id number]) PT-Bed Mobility Assessment Supine to Sit Supine to Sit Maximum Assistance,1 Person Assistance Sit to Supine Sit to Supine Maximum Assistance,1 Person Assistance PT-Transfer Assessment Sit to and From Stand Sit to and from Stand Maximum Assistance,2 Person Assistance,Use of Upper Extremities Equipment Transfer Assistive Device Gait Belt,Front Wheeled Walker Orthotic/Prosthetic Devices or Brace: No Comments Mobility Comments pt completed supine to sit max A and max cues. has decrease trunk control and required mod to max A for sitting balance and max cues for directions and safety. required max A for scooting ot EOB. pt can be impulsive. completed sit to stand max A x 2 and max cues and unable to fully stand up with R knee buckling and pt with difficulty following directions. pt requesting to use the toilet but unable to safely stand up and instructed to sit down. instructed to lay bed for bed armstrong use. completed sit to supine max A and max cues. positioned pt in bed. NAC came in to assist pt with bed armstrong use. Gait Assessment Comments Gait Comments unable at this time PT-Balance Assessment Sitting Balance and Reactions Static Sitting Balance Ability Poor Dynamic Sitting Balance Ability Poor Standing Balance and Reactions Static Standing Balance Ability Poor Dynamic Standing Balance Ability Poor Device Used FWW M5 PT-IP Objective Assessments Start: 11/12/20 16:25 Freq: NEEDED Status: Active Protocol: Document 11/12/20 12:50 AB (Rec: 11/12/20 16:36 AB [id number]) Orientation Orientation/Cognition Level of Alertness Alert Orientation Name,Place,Situation Safety Awareness Decreased Safety Awareness Comments impulsive Gross Range of Motion Lower Extremity ROM Assessment Within Functional Limits Strength Lower Extremity Strength Assessment Right Impaired Hip 2+/5 Knee 2+/5 Ankle R DF: 1/5 Coordination Assessment Gross Coordination Gross Coordination Impaired Sensation Assessment Sensation Gross Sensation Right LE Impaired Sensation Description Numbness Comments Sensation Comments stated that she can only feel ~ 60-70% on RLE/UE Muscle Tone Muscle Tone WNL No Other Assessments Other Other Assessments BUE/LE hypotonia M6 PT-IP Treatment Start: 11/12/20 16:25 Freq: NEEDED Status: Active Protocol: Document 11/12/20 12:50 AB (Rec: 11/12/20 16:36 AB [email or web address]) Physical Therapy Treatment Education Education Provided Safety M7 PT-IP Assessment and Plan Start: 11/12/20 16:25 Freq: NEEDED Status: Active Protocol: Document 11/12/20 12:50 AB (Rec: 11/12/20 16:36 AB [email or web address]) PT Summary Assessment and Plan Potential Rehabilitation Potential Fair Status of Condition at Evaluation Evolving Summary Impairments Pain,ROM,Strength,Balance, Coordination,Sensation,Tone, Cognition,Bed Mobility, Transfers,Gait,Activity Tolerance Assessment Summary pt requiring total A with mobility and unable to stand fully upright at this time. also has decrease sitting balance with decrease trunk strength and control. pt will require SNF vs acute rehab at this time. Goals Bed Mobility Goal Minimal Assistance Transfer Goal Moderate Assistance,Front Wheeled Walker Gait Goal Moderate Assistance,Front Wheel Walker Gait Distance 25 Days to Meet Goals 10 Frequency of Treatment Frequency Of Treatment Once a Day Treatment Plan Physical Therapy Treatment Plan Bed Mobility Training,Transfer Training,Gait Training, Therapeutic Exercise,Balance Retraining,Discharge Planning, Neuromuscular Re-ed, Coordination Retraining,Manual Therapy Precautions Other Precautions falls Recommendations To Nursing Amount of Assist Needed Mechanical Lift Discharge Recommendations PT Discharge Recommendations SNF vs Acute Rehab Transportation Needs at Discharge Wheelchair/Cabulance,Stretcher /Ambulance
[2020-11-12 13:00] VITALS: BP 149/88; PULSE 56; RESP 16; TEMP 36.7; O2SAT 95
--- NOTE | 2020-11-12 13:33 | PC.NURSE ---
Day shift: Pt unable to void on bedpan at this time. Will Santos onto BSC. Bladder scan shows approx 579mls at this time as well.
--- NOTE | 2020-11-12 13:46 | PC.NURSE ---
Day shift: Dr Parks informed about Pt not voiding today and bladder scan results.. UA ordered. Pt on BSC with POLITICAL THEORY PROFESSOR and OT (thank you) and Pt has voided. UA pending. Pt has had no c/o nausea or pain today. Pt back in bed. Call light in reach.
[2020-11-12 13:52] LABS: TSH w/ Reflex to FT4 1.55 uIU/mL (0.47-4.68)
--- NOTE | 2020-11-12 13:56 | PC.NURSE ---
Day shift: Pt voided 650mls and UA sent to lab at approx 1400.
--- NOTE | 2020-11-12 14:00 | OT.IP.EVAL ---
Past Medical History (Last Updated 11/11/20 @ 20:27 by Bj Mcgregor MD) No significant past medical history No significant past surgical history Surgical History (Last Updated 11/11/20 @ 20:27 by Bj Mcgregor MD) No significant past surgical history Occupational Therapy Inpatient Evaluation/Re-Eval M1 PT/OT-IP Prior Functional Status Start: 11/12/20 14:10 Freq: NEEDED Status: Active Protocol: Document 11/12/20 14:11 [facility] (Rec: 11/12/20 14:37 [facility] [id number]) Medical Review Prior Functional Status Medical History Reviewed Yes Communication Independent. Mobility and Gait Completely independent with no devices. Activities of Daily Living and IADL's Completely independent for all ADL and IADl needs. Prior Functional Level (Other details) Pt just retired from [employer] and currently on a long road trip with her from [place] and heading to [place]. Social History Household Members spouse Living Arrangements RV M2 OT-IP Current Condition Start: 11/12/20 14:10 Freq: Status: Active Protocol: Document 11/12/20 14:11 [facility] (Rec: 11/12/20 14:37 [facility] [id number]) Occupational Therapy Current Condition Current Condition Evaluation Date 11/12/20 Treatment Diagnosis CVA Diagnosis Onset Date 11/11/20 M3 OT- IP Subjective and Pain Start: 11/12/20 14:10 Freq: Status: Active Protocol: Document 11/12/20 14:11 [facility] (Rec: 11/12/20 14:37 [facility] [id number]) OT- Subjective Occupational Therapy Visit Type Type Initial Evaluation Visit Start Time 13:20 Visit Stop Time 14:00 Total Visit Minutes 40 Occupational Therapy Visit Comments Patient Comments Pt wanting to use the BSC. Patient/Caregiver Goals To get better and be able to be independent for all needs again. OT Pain Assessment Pain When Pain Assessed At Rest Pain Present Pain Present Denied Pain M4 OT- IP ADL's Start: 11/12/20 14:10 Freq: Status: Active Protocol: Document 11/12/20 14:11 [facility] (Rec: 11/12/20 14:37 [facility] [id number]) OT [id number] Comments OT Self-Feeding Comments Pt feelng too nauseous to eat at this time. OT ADL-Grooming Comments OT Grooming Comments Pt needing assist to help wash her left hand with wash cloth as unable to use right hand to assist . OT ADL-Dressing General Eval Lower Body Dressing Ability Maximum Assistance Areas Needing Assistance Underpants/Brief,Socks Comments OT Dressing Comments Pt able to assist to bridge and pull up on the left side of the brief when OT able to hold her right leg on the bed with knee bent up. OT ADL-Toileting General Evaluation Toileting Ability Maximum Assistance Areas Needing Assistance Manage Clothing,Perform Perineal Hygiene Comments OT Toileting Comments Initially assist in bed due to bowel movement and then able to get pt on the BSC and able to wipe with a wipe, CGA for balance and cushion under her feet for increased stability when sitting upright. OT ADL-Bathing Comments OT Bathing Comments NOt at this time. M5 OT- IP IADL's Start: 11/12/20 14:10 Freq: Status: Active Protocol: Document 11/12/20 14:11 [facility] (Rec: 11/12/20 14:37 [facility] [id number]) OT-Instrumental Activities of Daily Living Home Safety Awareness Ability to Problem Solve Emergency Able to Problem Solve Situations Home Safety Comments Pt with CVA and right hemiplegia for right UE and LE . Therefore pt will need extensive assist for all needs . M6 OT- IP Functional Cognition Start: 11/12/20 14:10 Freq: Status: Active Protocol: Document 11/12/20 14:11 [facility] (Rec: 11/12/20 14:37 [facility] [id number]) Cognitive Factors Limiting Selfcare Function Cognitive Ability Level of Alertness Alert Patient Orientation Name,Age,Place,Situation Attention Span Ability Capable of Focused Attention, Capable of Sustained Attention Ability to Follow Commands Able to Follow One Step Commands Memory Description No Deficits Noted Safety Awareness Underestimates Need for Assistance Problem Solving Ability No deficits Noted Cognitive Comments Cognitive Assessment Comments Pt appears intact for cognition at this time. Pt able to answer all home safety questions with good accuracy and able to count backwards from 100 by 7's. Pt is a bit impulsive as very independent and per pt not wanting to wait to get things done. OT- Vision and Hearing OT- Hearing Assessment OT- Hearing Assessment WFL OT- Vision Assessment Visual Acuity Glasses All The Time Vision Assessment Comments Pt able to read the clock, appears intact to do more testing tomorrow. M7 OT- IP Mobility and Balance Start: 11/12/20 14:10 Freq: Status: Active Protocol: Document 11/12/20 14:11 [facility] (Rec: 11/12/20 14:37 [facility] [id number]) OT- Bed Mobility Assessment Rolling Type of Rolling Roll to Left Level of Assistance Maximum Assistance Supine to Sit Supine to Sit Assist Maximum Assistance,1 Person Assistance Sit to Supine Sit to Supine Assist Moderate Assistance,2 Person Assistance Scooting Scooting to Edge of Bed Moderate Assistance,2 Person Assistance OT-Transfer Assessment Sit to and From Stand Sit to and from Stand Maximum Assistance,2 Person Assistance Transfers Transfer Ability Maximum Assistance,2 Person Assistance Technique Transfer Destination Bed,Bedside Commode Transfer Technique Stand Step Pivot Devices Transfer Assistive Devices None,Gait Belt Comments Mobility Comments Pt unsteady on her feet and needing to block her right knee from buckling and to also hold her RUE during squat pivot transfer with TECH WRITER to assist to and from the bed to BSC. Pt a bit impulsive and making her more unsteady. At this time best for nursing to use carissa lift at this time for transfers. OT- Gait Assessment Comments Gait Ability Comments Not at this time. OT- Balance Assessment Sitting Balance and Reactions Static Sitting Balance Ability Poor Dynamic Sitting Balance Ability Poor Standing Balance and Reactions Static Standing Balance Ability Poor Dynamic Standing Balance Ability Poor Comments Other Balance Tests/Deviations/Treatment Pt needing MODA to sit at : edge of the bed. NURIA to BSC with her feet propped and use of left hand to hold to the BSC. M8 OT- IP Objective Assessments Start: 11/12/20 14:10 Freq: Status: Active Protocol: Document 11/12/20 14:11 [facility] (Rec: 11/12/20 14:37 [facility] [id number]) OT Gross Range of Motion Upper Extremity Range of Motion Assessment Right Impaired ROM Impairments PROM WFL for RUE AROM impaired OT Strength Upper Extremity Strength Assessment Right Impaired Shoulder 2+ Elbow 2- Forearm 1 Wrist 1 Hand 1 OT- Coordination Assessment Upper Extremity Finger to Nose Test Right UE Impaired OT-Muscle Tone Assessment Muscle Tone WNL No Comments Muscle Tone Comments Hypertonicity throughout RUE. OT Sensation Assessment Comments Summary Comments Intact for light touch with RUE , however per pt feels tingling. M9 OT- IP Assessment and Plan Start: 11/12/20 14:10 Freq: Status: Active Protocol: Document 11/12/20 14:11 [facility] (Rec: 11/12/20 14:37 [facility] [id number]) OT Summary Assessment and Plan Summary OT Impairments Range of Motion,Strength, Balance,Coordination,Sensation ,Tone,Functional Mobility,Self -Feeding,Grooming,Dressing, Toileting,Bathing,Toilet Transfers,Shower Transfers, Activity Tolerance Progress Towards Goals Slow Progress due to Medical Issues,Slow Progress due to Activity Tolerance Assessment Summary Pt high complexity and main barriers from CVA are decreased strength, balance, coordination and fluidity of movement for RUE and RLE. Pt needing extensive assist x2 for all bed mobility and transfer needs. Pt is a bit impulsive as not wanting to want and trying to get up . Pt is highly motivated and a good candidate so far for inpt acute rehab. Goals Self-Feeding Goal Independent Grooming Goal Independent Dressing Goal Independent Toileting Goal Independent Bathing Goal Independent Toilet Transfer Goal Independent Shower Transfer Goal Independent OT-Other Goals Goals taken into account of pt using of RUE and RLE incorporated for ADl needs. Days to Meet Goals 45 Frequency of Treatment Frequency Of Treatment Once a Day Treatment Plan OT Treatment Plan ADL Training,Functional Mobility,Neuromuscular Re- education,Patient/Family Education,Discharge Planning Other Treatment Recommendations and Next Sitting at edge of bed with Treatment Focus NURIA for grooming needs. Discharge Recommendations OT Discharge Recommendations Acute Rehab Transportation Needs at Discharge Private Vehicle,Wheelchair/ Cabulance
[2020-11-12 14:48] LABS: Bacteria Urine Moderate (10-30); Culture Indicated Urine Specimen Cultured; Mucus Urine 1+ (Negative); RBC Urine 0-1/HPF (0-5/HPF); WBC Urine 10-30/HPF (0-5/HPF)
--- NOTE | 2020-11-12 15:17 | CM.DPNOTE ---
Faxed referral packet to [facility] per Javy and received fax confirmation. Twyla Sears CM Asst.
--- NOTE | 2020-11-12 15:19 | SLP.IPNOTE ---
Order received. Checked with nursing regarding ptbeing dizzy/nauseas. Stepped into pt's room ann marie. Pt sleeping. Informed pt that ST will see her tomorrow re: slurred speech.
[2020-11-12] MEDS: cefTRIAXone 1,000 MG in SODIUM CHLORIDE 0.9% 100 ML 200 ML IV (15:43)
--- NOTE | 2020-11-12 15:52 | PC.NURSE ---
resumed pt's IVF. Rocephin infusing. pt able to make needs known. call light in reach. bed alarm active.
[2020-11-12 15:53] VITALS: BP 141/78; PULSE 74; RESP 18; TEMP 36.9; O2SAT 95
--- NOTE | 2020-11-12 15:57 | CM.DPC ---
DCP/continued: Reviewed chart and spoke with therapy re: d/c planning. Current recommendation is acute rehabilitation if insurance will cover. FOREST ENGINEER met with patient and spouse re: planning. At the time of visit patient had not yet seen patient. Initially, both patient and spouse were hoping to take patient back home to [place]. After therapy patient became very sleepy and did not want to discuss further d/c planning. Patient did provide FOREST ENGINEER with permission to fax clinicals to [facility] for review. Unsure at this time whether or not patient's insurance will cover any type of rehabilitation out of state. P: CM team to follow closely. Anticipate medical clearance within the next 254-48hrs. CARLO Tucker
--- NOTE | 2020-11-12 16:43 | CM.DANOTE ---
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 PCP unknown. Primary payer Commercial insurance and self-pay. Pending therapy evaluations: physical, occupational and speech. CARLO Student met with , he reported they are traveling in an RV [facility] going to [place] from [place]. He reported she is independent at baseline. CARLO and CARLO Student met with patient and later in the morning. Educated patient on some discharge options like acute rehabilitation. Patient and are considering flying home and having son fly from [place] to drive their vehicles back. PLAN: CM Team to continue to follow closely. Discharge planning is pending therapy evaluations, MRI and other diagnostic procedures as well as patient/husbands wishes. CARLO Tucker MSW Student Discharge Planning/Care Management CM Discharge Assessment Start: 11/12/20 10:14 Freq: Status: Active Protocol: Document 11/12/20 10:15 [facility] (Rec: 11/12/20 10:16 [facility] [id number]) Discharge Planning Assessment Assigned Compounding Assistant CARLO Mullins DPOA/Assigned Designee Name Sumeet Matthew, Advance Directives? No Advance Directives on File No History Provided By Significant Other,Medical Record Has Patient been admitted in last 30 No days? Prior Living Arrangements RV Comment Patient is on Vacation from [place] Household Members spouse Type of transporation used prior to Drives own vehicle admit Independent with ADL's Yes Caregiver for Another No Barriers to Discharge Yes Comment Distance from home Transportation Arrangement Patients [place] can provide transportation Whiteboard Updated in Patient Room with Yes name and ext. # of Compounding Assistant Review Status In Process
--- NOTE | 2020-11-12 20:23 | PC.NURSE ---
pt refused her lipitor. encouraged pt to take it, gave her education regarding this med and the risk of not taking it; however, pt still strongly refused her lipitor.
[2020-11-12 21:00] VITALS: BP 130/61; PULSE 58; RESP 17; TEMP 36.6; O2SAT 97
[2020-11-13] VITALS (7 sets, daily range): BP systolic 118–141; BP diastolic 71–87; PULSE 53–63; RESP 16–19; TEMP 35.9–37.5; O2SAT 96–99
--- NOTE | 2020-11-13 02:40 | PC.NURSE ---
Patient refused 1st q4 NIHSS assessment. Patient educated on importance of proper and timely assessments and reasoning behind them. Patient adamantly refused, requesting that this RN return later. This RN noted mild slurring and slightly flattened nasolabial fold.
[2020-11-13] MEDS: PANTOPRAZOLE DR 20 MG TABLET PO (05:59)
[2020-11-13 06:11] LABS: Hemoglobin 13.4 g/dL (12.0-16.0); Mean Corpuscular HGB Conc 34.4 % (30-36); Mean Corpuscular Volume 84.4 fL (80-100); Platelet Count 193 X10^3/uL (150-400); Red Blood Cell Count 4.63 X10^6/uL (4.0-5.2); Red Cell Distribution Width 13.1 % (11.6-14.8); White Blood Cell Count 5.3 X10^3/uL (4.5-11.0)
[2020-11-13 06:14] LABS: BUN Creatinine Ratio 16.4 (6-22); Blood Urea Nitrogen 10 mg/dL (7-17); Calcium 9.1 mg/dL (8.4-10.2); Carbon Dioxide 26 mmol/L (22-32); Chloride 108 mmol/L (98-107); Estimated Glomerular Filt Rate > 60.0 mL/min (>60); Glucose 94 mg/dL (80-110); HEMOLYSIS < 15 (0-50); Potassium 3.4 mmol/L (3.4-5.1); Sodium 140 mmol/L (137-145)
[2020-11-13] MEDS: ASPIRIN EC 81 MG TABLET PO (10:17)
[2020-11-13] MEDS: ENOXAPARIN 40 MG/0.4 ML SYRINGE SUBCUT (10:17)
[2020-11-13] MEDS: CLOPIDOGREL 75 MG TABLET PO (10:17)
--- NOTE | 2020-11-13 10:21 | ST.IPSCREEN ---
Order received. Visited with pt and her son in pt's room. Introduced myself and purpose for the visit. Pt reported that she has returned to normal. She denied any speech/language/swallowing difficulty. Her son agreed. No ST at this time. Will discharge order.
--- NOTE | 2020-11-13 11:33 | ST.IPSCREEN ---
Order received. Visited with pt in pt's room. Introduced myself and purpose for the visit. Pt reported that she has returned to normal. She denied any speech/language/swallowing difficulty. No ST at this time. Will discharge order
--- NOTE | 2020-11-13 11:55 | OT.IP.TRT ---
Occupational Therapy Treatment Note M2 OT-IP Current Condition Start: 11/12/20 14:10 Freq: Status: Active Protocol: Document 11/12/20 14:11 [facility] (Rec: 11/12/20 14:37 [facility] [id number]) Occupational Therapy Current Condition Current Condition Evaluation Date 11/12/20 Treatment Diagnosis CVA Diagnosis Onset Date 11/11/20 M3 OT- IP Subjective and Pain Start: 11/12/20 14:10 Freq: Status: Active Protocol: Document 11/13/20 16:44 [facility] (Rec: 11/13/20 17:15 [facility] [id number]) OT- Subjective Occupational Therapy Visit Type Type Treatment Note Visit Start Time 11:05 Visit Stop Time 11:55 Total Visit Minutes 50 Notes RANCH HAND SUPERVISOR present for part of the session to work on dynamic balance needs while dressing. Occupational Therapy Visit Comments Patient Comments Pt agreed to get up. Patient/Caregiver Goals To go to acute rehab prior to going home. OT Pain Assessment Pain When Pain Assessed At Rest Pain Present Pain Present Denied Pain M4 OT- IP ADL's Start: 11/12/20 14:10 Freq: Status: Active Protocol: Document 11/13/20 16:44 [facility] (Rec: 11/13/20 17:15 [facility] [id number]) OT [id number] Comments OT Self-Feeding Comments After set-up able to feed herself with left hand. OT ADL-Grooming General Evaluation Grooming Ability Standby Assistance,Maximum Assistance Comments OT Grooming Comments Pt able mainly using left hand for grooming needs and needing MAX A to help incorporate right hand for needs. OT ADL-Dressing General Eval Lower Body Dressing Ability Maximum Assistance Areas Needing Assistance Socks,Shoes Comments OT Dressing Comments Pt needing MAX A for right UE management to assist for socks and shoes for balance while seated on the bed. Pt trying to use RUE but not having enough strength or coordination to assist at this time. OT ADL-Toileting Comments OT Toileting Comments Not performed. OT ADL-Bathing Comments OT Bathing Comments NOt at this time. . M6 OT- IP Functional Cognition Start: 11/12/20 14:10 Freq: Status: Active Protocol: Document 11/13/20 16:44 [facility] (Rec: 11/13/20 17:15 [facility] [id number]) Cognitive Factors Limiting Selfcare Function Cognitive Comments Cognitive Assessment Comments Pt appears intact with no cognitive deficits at this time for executive functioning . Pt however still a little impulsive and trying to do things on her own and forgetting that she is not longer able to to things on her own due to her right sided weakness and decreased balance. OT- Vision and Hearing OT- Vision Assessment Vision Assessment Comments Vision appears intact. M7 OT- IP Mobility and Balance Start: 11/12/20 14:10 Freq: Status: Active Protocol: Document 11/13/20 16:44 [facility] (Rec: 11/13/20 17:15 [facility] [id number]) OT- Bed Mobility Assessment Supine to Sit Supine to Sit Assist Contact Guard Assistance, Moderate Assistance Sit to Supine Sit to Supine Assist Contact Guard Assistance, Moderate Assistance Scooting Scooting to Edge of Bed Minimal Assistance,Moderate Assistance OT-Transfer Assessment Sit to and From Stand Sit to and from Stand Moderate Assistance,2 Person Assistance Technique Transfer Destination Bed,Bedside Commode,Chair Transfer Technique Stand Step Pivot Devices Transfer Assistive Devices Gait Belt,Front Wheeled Walker Comments Mobility Comments Pt able to do bed mobility with incorporating of RUE with MODA for therapist and CGA if mainly just using her left side to assist to get up. Sit to stand with MODA X 2 as incorporating use of right hand to help push off the bed and assist to position so able to bear weight on the arm. MAX AX for rigth UE control on the FWW so able to assist to bear weight through the right UE. Also needing assist to help keep her right knee from buckling. RANCH HAND SUPERVISOR also there to assist as able to take a step forwards and back MAX A X2 with FWW. OT- Gait Assessment Comments Gait Ability Comments Transfer only at this time. OT- Balance Assessment Sitting Balance and Reactions Static Sitting Balance Ability Fair Dynamic Sitting Balance Ability Poor Standing Balance and Reactions Static Standing Balance Ability Poor Dynamic Standing Balance Ability Poor Comments Other Balance Tests/Deviations/Treatment Pt's sitting balance much : improved and able to sit at the edge of the bed with CGA to SBA when feet supported and with shoes on. Pt vast improvement for midline control. Pt able to tolerate min pertrubations while seated . M8 OT- IP Objective Assessments Start: 11/12/20 14:10 Freq: Status: Active Protocol: Document 11/12/20 14:11 [facility] (Rec: 11/12/20 14:37 [facility] [id number]) OT Gross Range of Motion Upper Extremity Range of Motion Assessment Right Impaired ROM Impairments PROM WFL for RUE AROM impaired OT Strength Upper Extremity Strength Assessment Right Impaired Shoulder 3- Elbow 3- Forearm 2- Wrist 2- Hand 2- OT- Coordination Assessment Upper Extremity Finger to Nose Test Right UE Impaired OT-Muscle Tone Assessment Muscle Tone WNL No Comments Muscle Tone Comments OT Sensation Assessment Comments Summary Comments Intact for light touch with RUE , however per pt feels tingling. M9 OT- IP Assessment and Plan Start: 11/12/20 14:10 Freq: Status: Active Protocol: Document 11/13/20 16:44 [facility] (Rec: 11/13/20 17:15 [facility] [id number]) OT Summary Assessment and Plan Potential Rehabilitation Potential Good Analytic Complexity at Evaluation Moderate Summary OT Impairments Range of Motion,Strength, Balance,Coordination,Sensation ,Tone,Functional Mobility,Self -Feeding,Grooming,Dressing, Toileting,Bathing,Toilet Transfers,Shower Transfers, Activity Tolerance Progress Towards Goals Progressing Toward Goals,Slow Progress due to Activity Tolerance Assessment Summary Pt now has movement throughout her RUE and RLE . RUE strength now 3-/5 to 2-/5 from proximal to distal. Pt better midline control. Pt very motivated and therefore slightly impulsive as trying to do things on her own such as crossing her right leg over to tie her shoe but forgetting that her dynamic balance is poor and then falling/leaning over and needing assist for her balance. Pt would greatly benefit from acute rehab as appears to making gains with improved strength and balance needs at this time. Pt could transfer with one person assist if having to compensate her movement, however trying to have her incorporate use of right side of her body and therefore needing two person assist. Goals Self-Feeding Goal Independent Grooming Goal Independent Dressing Goal Independent Toileting Goal Independent Bathing Goal Independent Toilet Transfer Goal Independent Shower Transfer Goal Independent OT-Other Goals Goals taken into account of pt using of RUE and RLE incorporated for ADl needs. Days to Meet Goals 40 Frequency of Treatment Frequency Of Treatment Once a Day Treatment Plan OT Treatment Plan ADL Training,Functional Mobility,Neuromuscular Re- education,Patient/Family Education,Discharge Planning Other Treatment Recommendations and Next Transfer to [facility] with MODA x 1. Treatment Focus Discharge Recommendations OT Discharge Recommendations Acute Rehab Transportation Needs at Discharge Private Vehicle,Wheelchair/ Cabulance
--- NOTE | 2020-11-13 12:16 | PT.IPTN ---
Physical Therapy Treatment Note M2 PT-IP Current Condition Start: 11/12/20 16:25 Freq: NEEDED Status: Active Protocol: Document 11/12/20 12:50 [facility] (Rec: 11/12/20 16:36 [facility] [id number]) Physical Therapy Current Condition Current Condition Evaluation Date 11/12/20 Treatment Diagnosis Brainstem CVA w/ R sided weakness; difficulty in walking Onset Date 11/11/20 Precautions Other Precautions falls M3 PT-IP Subjective Start: 11/12/20 16:25 Freq: NEEDED Status: Active Protocol: Document 11/13/20 11:41 [facility] (Rec: 11/13/20 15:27 [facility] [id number]) Subjective Physical Therapy Visit Type Type Treatment Note Visit Start Time 11:41 Visit Stop Time 12:16 Total Visit Minutes 35 Notes Pt able to be seen on 2nd attempt, was busy with OT assessments. CoTx with OT. Number of RETREAD OPERATOR Visits 1 Physical Therapy Visit Comments Patient Comments Pt agreeable to working with therapy. Patient Goals Pt welcoming to go to acute rehab to improve functional mobility. Therapy Pain Assessment Pain Present Pain Present Denied Pain M4 PT-IP Mobility and Gait Start: 11/12/20 16:25 Freq: NEEDED Status: Active Protocol: Document 11/13/20 11:41 [facility] (Rec: 11/13/20 15:27 [facility] [id number]) PT-Bed Mobility Assessment Supine to Sit Supine to Sit Contact Guard Assistance, Minimal Assistance,1 Person Assistance Sit to Supine Sit to Supine Contact Guard Assistance, Minimal Assistance,1 Person Assistance Scooting Scooting to Edge of Bed Minimal Assistance Scooting Up and Down in Bed Moderate Assistance PT-Transfer Assessment Sit to and From Stand Sit to and from Stand Moderate Assistance,2 Person Assistance,Use of Upper Extremities Equipment Transfer Assistive Device Gait Belt,Front Wheeled Walker ,Aldair Walker Orthotic/Prosthetic Devices or Brace: No Transfers Transfer Destination Bed Transfer Ability Level of Assist Moderate Assistance,2 Person Assistance,Use of Upper Extremities Comments Mobility Comments Pt is impulsive, R side neglect at times. Completed supine>sit and scoot to EOB CG - Min A for trunk righting and Max cues. OT provided assist and education for RUE WB on bed to assist trunk support, CG- Min A for sitting support. CG- Mod A for sitting balance during donning sneakers self w/ LUE and OT to complete. Sit >stand Mod A x2 and maintaining standing using HW initially, support for RUE and trunk 2nd person R knee stability due to buckling or hyperextension. Education on wt shifting and safety reach back prior to sit. Pt 2nd attempt into standing using FWW, OT provided Mod A for RUE positioning on FWW and trunk alignement assist, RETREAD OPERATOR provided Mod A for trunk righting to R and RLE cues for soft knee quad and HS facilitation. Pt buckled with assist to return to extension. Pt returned to bed stand>sit Mod A x2, lateral scoot to L up EOB Mod A x2 cues for awareness of RLE repositioning and SIt>supine Mod A x1 for trunk and RLE into bed. RETREAD OPERATOR instructed LE exercises: AP AAROM R ankle Poor- strength, quad set, glut set, heel slide using gait belt and cues for adduction facilitation to decrease R hip abd fall out, improved self as reps progressed. Pt had call light and all needs in reach before left, bed alarmed. Gait Assessment Gait Gait Assistance Required: Maximum Assistance,2 Person Assist Distance (Feet) 1 Able to Maintain Weight Bearing Status Yes During Gait Assistive Devices Assistive Device Front Wheeled Walker,Aldair Walker Orthotic/Prosthetic Devices or Brace: No Gait Deviations General Gait Pattern Antalgic,Decreased Stride Length,Decreased Feet Clearance,Flexed Trunk,Lateral Trunk Lean,Step-to Gait Factors Limiting Gait Function Factors Limiting Gait Function Decreased Activity Tolerance, Decreased Strength,Difficulty Following Directions, Incoordination,Poor Balance, Poor Safety Awareness Comments Gait Comments Sit<> stand at EOB, 2 small steps forward/ back step using FWW Mod A x2: 1 person for RUE positioning and trunk support to get WB feedback using FWW and 2nd person Mod A for trunk alignment (tends to lean to R) and LLE stability, R Knee unstable into hyperextension and brittanie when wt shift to R. Stair Climbing Assessment Comments Stair Climbing Comments Unable to assess at this time. PT-Balance Assessment Sitting Balance and Reactions Static Sitting Balance Ability Poor Dynamic Sitting Balance Ability Poor Standing Balance and Reactions Static Standing Balance Ability Poor Dynamic Standing Balance Ability Poor Device Used FWW, HW M5 PT-IP Objective Assessments Start: 11/12/20 16:25 Freq: NEEDED Status: Active Protocol: Document 11/12/20 12:50 [facility] (Rec: 11/12/20 16:36 [facility] [id number]) Orientation Orientation/Cognition Level of Alertness Alert Orientation Name,Place,Situation Safety Awareness Decreased Safety Awareness Comments impulsive Gross Range of Motion Lower Extremity ROM Assessment Within Functional Limits Strength Lower Extremity Strength Assessment Right Impaired Hip 2+/5 Knee 2+/5 Ankle R DF: 1/5 Coordination Assessment Gross Coordination Gross Coordination Impaired Sensation Assessment Sensation Gross Sensation Right LE Impaired Sensation Description Numbness Comments Sensation Comments stated that she can only feel ~ 60-70% on RLE/UE Muscle Tone Muscle Tone WNL No Other Assessments Other Other Assessments BUE/LE hypotonia M6 PT-IP Treatment Start: 11/12/20 16:25 Freq: NEEDED Status: Active Protocol: Document 11/13/20 11:41 SP (Rec: 11/13/20 15:27 SP [id number]) Physical Therapy Treatment Exercises Exercises Ankle Pumps,Gluteal Sets,Quad Sets,Heel Slides,Supine Hip Abduction M7 PT-IP Assessment and Plan Start: 11/12/20 16:25 Freq: NEEDED Status: Active Protocol: Document 11/13/20 11:41 SP (Rec: 11/13/20 15:27 SP [id number]) PT Summary Assessment and Plan Potential Rehabilitation Potential Fair Status of Condition at Evaluation Evolving Summary Impairments Pain,ROM,Strength,Balance, Coordination,Sensation,Tone, Cognition,Bed Mobility, Transfers,Gait,Activity Tolerance Assessment Summary pt requiring Mod A x2 with mobility using HW vs FWW in standing with support for trunk, RUE and RLE for stabilization. Recommending transfers only with nursing staff. Pt improved but continues decreased sitting balance w/ R sided neglect at times, impulsive, decrease trunk strength and control. pt will require acute rehab at this time. Goals Bed Mobility Goal Minimal Assistance Transfer Goal Moderate Assistance,Front Wheeled Walker Gait Goal Moderate Assistance,Front Wheel Walker Gait Distance 25 Days to Meet Goals 10 Frequency of Treatment Frequency Of Treatment Once a Day Treatment Plan Physical Therapy Treatment Plan Bed Mobility Training,Transfer Training,Gait Training, Therapeutic Exercise,Balance Retraining,Discharge Planning, Neuromuscular Re-ed, Coordination Retraining,Manual Therapy Other Recommendations and Next Treatment bed mobility, sitting balance, Focus standing balance w/ AD, transfers. Precautions Other Precautions falls Recommendations To Nursing Amount of Assist Needed 2 Person Assist Discharge Recommendations PT Discharge Recommendations Acute Rehab Transportation Needs at Discharge Wheelchair/Cabulance,Stretcher /Ambulance
--- NOTE | 2020-11-13 15:45 | CM.DPNOTE ---
DCP Note Patient now eager to DC IH to an acute inpatient rehab setting in [facility]. Patient does not feel she can tolerate travel back to [place]. Patient/spouse unfamiliar w/geographic area, request acute rehab facility that can accept patient the soonest Faxed referral to [facility], [facility] and [facility] in [place] Michela at [facility] explained that they could likely accept patient once she does not require max assist of 2, their unit has numerous patients w/higher care needs at this time. In addition, patient has a managed, out of state insurance that would require pre-authorization. Thomas at [facility] suggested referral be faxed, however, he has numerous referrals to screen before this patient. [facility] in [place] P# [phone] F# [phone], says they have beds, asks if this is a Medicaid plan. Patient says this is not a state subsidized plan, it is a managed plan through the [employer]. Clinical faxed to [place] for review. Attempted Sara Shaffer and [facility] no longer has a unit and required a completed referral form, no phone access to staff in the acute rehab admissions dept (?) per website. Will continue search to secure inpatient acute rehab vs SNF, patient is indp. and active at baseline and would benefit from aggressive inpatient stroke rehab, medically ready for such JW
--- NOTE | 2020-11-13 15:58 | PM.PN.1 ---
Subjective Subjective Date Patient Seen: 11/13/20 Time Patient Seen: 10:00 Interval history: Today she has very little change from yesterday. Her nausea is improving. She has slightly increased movement on the right but still proundly weak. Exam Vital Signs (past 8 hours): - 11/13/20 12:48 Temperature 97.8 F Pulse Rate 62 Respiratory Rate 16 Blood Pressure 130/71 Pulse Oximetry 97 Oxygen Delivery Method Room Air Oxygen Flow Rate 0 Narrative Exam Narrative: GEN: no acute distress. HEENT: PERRL, moist mucous membranes NECK: trachea midline, no JVD CV: regular bradycardia, with no murmurs PULM: clear to auscultation bilaterally ABD: soft, bowel sounds positive, nontender, no organomegaly. EXT: warm and well perfused with no edema NEURO: patient has right sided facial droop, speech is slightly slurred, sensation in face is normal, and she is able to smile and close eyes. Weakness in right shoulder 2/5, right upper extremity 1/5, right lower extremity 1/5. Can not lift extremities off bed, but can wriggle them slightly. Sensation diminished in right upper and lower extremity. Left upper and lower extremity with normal strength in upper and lower extremities SKIN: no rashes PSYCH: cooperative, pleasant Objective Labs Result Diagrams: 11/13/20 05:36 11/13/20 05:36 Labs: Laboratory Results - last 24 hr 11/13/20 11/13/20 05:36 05:36 WBC 5.3 RBC 4.63 Hgb 13.4 Hct 39.0 MCV 84.4 MCH 29.0 MCHC 34.4 RDW 13.1 Plt Count 193 Sodium 140 Potassium 3.4 Chloride 108 H Carbon Dioxide 26 BUN 10 Creatinine 0.61 Estimated GFR > 60.0 BUN/Creatinine Ratio 16.4 Glucose 94 Calcium 9.1 PFSH Medical History (Updated 11/11/20 @ 20:27 by Bj Mcgregor MD) No significant past medical history Surgical History (Updated 11/11/20 @ 20:27 by Bj Mcgregor MD) No significant past surgical history Family History (Updated 11/11/20 @ 20:28 by Bj Mcgregor MD) Mother CVA (cerebral vascular accident) Father CAD (coronary artery disease) Hip fracture Other Hyperlipidemia Social History household members: spouse Smoking Status: Former smoker alcohol intake: current Assessment & Plan Assessment & Plan narrative: 64W with no significant PMH, on no meds who presented with vertigo, nausea, right sided weakness and numbness found to have acute CVA of the brainstem. 1. 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 Bentley only significant stenosis was in the left vertebral artery, v1, near subclavian, rest of brain had good collateral flow, discussed with teleneurologist and no IR or surgical intervention indicated as there is adequate collaterals -contine dual antiplatelet for 21 days with asa/plavix, then lifelong aspirin, continue high dose atorvastatin ------patient declining statin, discussed at length the benefit of statin for reducing stroke risk, she will think about it -ordered for a1c and lipids for risk stratification -ordered for echo -on telemetry to monitor for arrhythmia -ordered for PT/OT/speech therapy -dispo pending therapy evaluation -continue lorazepam metoclopramide, ondansetron, meclizine, Phenergan as needed. 2. Left Vertebral Artery Stenosis -Lipids ordered -aspirin, plavix ordered 3. UTI with urinary retention -UA positive, with urine cultures pending -ceftriaxone ordered, follow up final cultures -she was found to have mild urinary retention, but decline straight cath or aguilar, has been able to urinate and denies significant abdominal discomfort Proxy is her Bryce Matthew DVT ppx: lovenox 40u sc CODE: FULL She is medically stable for discharge and attempt is being made at inpatient acute rehab for more intensive therapy. Quality VTE Deep Vein Thrombosis/Pulmonary Embolism Present on Admission: No
[2020-11-13] MEDS: cefTRIAXone 1,000 MG in SODIUM CHLORIDE 0.9% 100 ML 200 ML IV (16:52)
--- NOTE | 2020-11-13 22:43 | PC.NURSE ---
pt is alert and Oriented X4 able to make her needs known, Pt with CVA right side affected minimal control of right side/ NIH 6-8 VSS on RA sats 98%, 2 Person CGA to BSC, voids large amounts at a time. Denies c/o pain, Pt has refused to take Atorvaststin despite education and conversation with MD. Lac saline lock with scheduled ceftriaxone. Skin intact, no fall or injuries this shift
[2020-11-14 04:45] VITALS: BP 139/79; PULSE 50; RESP 18; TEMP 36.3; O2SAT 100
--- NOTE | 2020-11-14 06:12 | PC.NURSE ---
Addendum entered by Debby Lord R.N. 11/14/20 06:22: Pt refused to attempt to use the BSC and further refused bladder scan, stating I'll do it on the next shift. This RN educated pt on the importance of voiding regularly and not attempting to purposefully retain urine. This RN reminded the patient of the current presence of UTI and that self-imposed urine retention can exacerbate the issue. Pt verbalized understanding and confirmed refusal again. Will continue to monitor and update next shift. Patient remains resistant to certain interventions and on occasion must be coaxed into minimum cooperation. Original Note: Pt. refused to go to bathroom, Pt. said that she know when she has to go and she dosen't feel like she need go to bathroom and she refused to be bladder scanned, she didn't void at all on my shift.
[2020-11-14] MEDS: PANTOPRAZOLE DR 20 MG TABLET PO (06:53)
[2020-11-14] MEDS: ASPIRIN EC 81 MG TABLET PO (08:56)
[2020-11-14] MEDS: CLOPIDOGREL 75 MG TABLET PO (08:56)
[2020-11-14 10:40] VITALS: BP 157/90; PULSE 63; RESP 15; TEMP 36.7; O2SAT 98
--- NOTE | 2020-11-14 11:21 | OT.IP.TRT ---
Occupational Therapy Treatment Note M2 OT-IP Current Condition Start: 11/12/20 14:10 Freq: Status: Active Protocol: Document 11/12/20 14:11 [facility] (Rec: 11/12/20 14:37 [facility] [id number]) Occupational Therapy Current Condition Current Condition Evaluation Date 11/12/20 Treatment Diagnosis CVA Diagnosis Onset Date 11/11/20 M3 OT- IP Subjective and Pain Start: 11/12/20 14:10 Freq: Status: Active Protocol: Document 11/14/20 11:06 [facility] (Rec: 11/14/20 11:21 [facility] [id number]) OT- Subjective Occupational Therapy Visit Type Type Treatment Note Visit Start Time 10:32 Visit Stop Time 10:59 Total Visit Minutes 27 Occupational Therapy Visit Comments Patient Comments Pt states feels bored and really wanting to get to acute rehab to work on getting better. Pt states was able to use the FWW with 2-3 person assist to get to the bathroom and shower today. Patient/Caregiver Goals To go to acute rehab. OT Pain Assessment Pain When Pain Assessed At Rest Pain Present Pain Present Denied Pain M4 OT- IP ADL's Start: 11/12/20 14:10 Freq: Status: Active Protocol: Document 11/14/20 11:06 [facility] (Rec: 11/14/20 11:21 [facility] [id number]) OT DRM-Mutl-[place] General Evaluation Self-Feeding Ability Standby Assistance,Maximum Assistance Comments OT Self-Feeding Comments After set-up able to feed herself with left hand. Pt's right hand now able to grossly assist for set-up needs. If use of right hand pt would require MAXA to help incorporate her hand to eat at this time. OT ADL-Grooming Comments OT Grooming Comments NOt performed. OT ADL-Oral Care Comments Oral Care Comments Not performed. OT ADL-Dressing General Eval Upper Body Dressing Ability Moderate Assistance Lower Body Dressing Ability Maximum Assistance Comments OT Dressing Comments Pt's right hand able to assist today to assist to help hold her right leg in place up over her left knee while her left hand is able to nadine/doff her socks. Pt still needing MAXA to help get her feet into the lace up shoes. Today pt able to grossly grasp her gown with right hand to help get the sleeve up over her elbow. MODA to help incorporate use of right hand for UB dressing needs. If doing compensatory technique pt would be NURIA. M5 OT- IP IADL's Start: 11/12/20 14:10 Freq: Status: Active Protocol: Document 11/12/20 14:11 [facility] (Rec: 11/12/20 14:37 [facility] [id number]) OT-Instrumental Activities of Daily Living Home Safety Awareness Ability to Problem Solve Emergency Able to Problem Solve Situations Home Safety Comments Pt with CVA and right hemiplegia for right UE and LE . Therefore pt will need extensive assist for all needs . M6 OT- IP Functional Cognition Start: 11/12/20 14:10 Freq: Status: Active Protocol: Document 11/13/20 16:44 [facility] (Rec: 11/13/20 17:15 [facility] [id number]) Cognitive Factors Limiting Selfcare Function Cognitive Comments Cognitive Assessment Comments Pt appears intact with no cognitive deficits at this time for executive functioning . Pt however still a little impulsive and trying to do things on her own and forgetting that she is not longer able to to things on her own due to her right sided weakness and decreased balance. OT- Vision and Hearing OT- Vision Assessment Vision Assessment Comments Vision appears intact. M7 OT- IP Mobility and Balance Start: 11/12/20 14:10 Freq: Status: Active Protocol: Document 11/14/20 11:06 [facility] (Rec: 11/14/20 11:21 [facility] [id number]) OT- Bed Mobility Assessment Supine to Sit Supine to Sit Assist Minimal Assistance Scooting Scooting to Edge of Bed Contact Guard Assistance OT-Transfer Assessment Sit to and From Stand Sit to and from Stand Moderate Assistance,1 Person Assistance Transfers Transfer Ability Moderate Assistance,1 Person Assistance Technique Transfer Destination Bed,Chair Transfer Technique Stand Step Pivot Devices Transfer Assistive Devices None,Gait Belt Comments Mobility Comments Pt had nursing assist to get her to the bathroom with FWW with 3 person assist. Attempted to stand with FWW to transfer and pt still needing assist to hold right hand in place for support and RLE brittanie and hyperextends at this time and best not to use FWW for transfers. Therefore for safety opted for stand pivot transfer and able to assist to block her right knee and able to transfer with MIn /MODA x1 to and from the recliner to bed with good safety. OT- Balance Assessment Sitting Balance and Reactions Static Sitting Balance Ability Good Dynamic Sitting Balance Ability Fair Standing Balance and Reactions Static Standing Balance Ability Poor Dynamic Standing Balance Ability Poor Comments Other Balance Tests/Deviations/Treatment Sitting balance improved to : midline and aware to self correct , does better when her feet are stabilized. Pt able to reach out of grab items with left hand and right hand able to stay on bed to assist for balance better today. M8 OT- IP Objective Assessments Start: 11/12/20 14:10 Freq: Status: Active Protocol: Document 11/12/20 14:11 [facility] (Rec: 11/12/20 14:37 [facility] [id number]) OT Gross Range of Motion Upper Extremity Range of Motion Assessment Right Impaired ROM Impairments PROM WFL for RUE AROM impaired OT Strength Upper Extremity Strength Assessment Right Impaired Shoulder 3- Elbow 3- Forearm 3- Wrist 3- Hand 3- OT- Coordination Assessment Upper Extremity Finger to Nose Test Right UE Impaired OT-Muscle Tone Assessment Muscle Tone WNL No Comments Muscle Tone Comments Comments Summary Comments Intact for light touch with RUE , however per pt feels tingling. M9 OT- IP Assessment and Plan Start: 11/12/20 14:10 Freq: Status: Active Protocol: Document 11/14/20 11:06 [facility] (Rec: 11/14/20 11:21 [facility] [id number]) OT Summary Assessment and Plan Potential Rehabilitation Potential Excellent Analytic Complexity at Evaluation Moderate Summary OT Impairments Range of Motion,Strength, Balance,Coordination,Sensation ,Tone,Functional Mobility,Self -Feeding,Grooming,Dressing, Toileting,Bathing,Toilet Transfers,Shower Transfers, Activity Tolerance Progress Towards Goals Progressing Toward Goals Assessment Summary Pt now able to use her right hand to grossly assist for needs such as hold part of head phone so mostly able to use left hand to don over her ears. Pt able to transfer standpivot with MODA x1 and squat pivot NURIA x1. Pt very motivated and able to more and control her RUE better today. Pt is an excellent candidate for acute rehab and willing and eager to get better. Pt has been having good follow through of exercise given by therapists in which she has been doing on her own. RUE strength increased to 3-/5 throughout now. Increase Ot treatment to twice a day now. Goals Self-Feeding Goal Independent Grooming Goal Independent Dressing Goal Independent Toileting Goal Independent Bathing Goal Independent Toilet Transfer Goal Independent Shower Transfer Goal Independent OT-Other Goals Goals taken into account of pt using of RUE and RLE incorporated for ADl needs. Days to Meet Goals 35 Frequency of Treatment Frequency Of Treatment twice a Day Treatment Plan OT Treatment Plan ADL Training,Functional Mobility,Neuromuscular Re- education,Patient/Family Education,Discharge Planning Other Treatment Recommendations and Next Pt to stand at sink with RUE Treatment Focus to asisst to support to stand and able to do grooming needs. Discharge Recommendations OT Discharge Recommendations Acute Rehab Transportation Needs at Discharge Private Vehicle
--- NOTE | 2020-11-14 11:24 | PT.IPTN ---
Physical Therapy Treatment Note M2 PT-IP Current Condition Start: 11/12/20 16:25 Freq: NEEDED Status: Active Protocol: Document 11/12/20 12:50 [facility] (Rec: 11/12/20 16:36 [facility] [id number]) Physical Therapy Current Condition Current Condition Evaluation Date 11/12/20 Treatment Diagnosis Brainstem CVA w/ R sided weakness; difficulty in walking Onset Date 11/11/20 Precautions Other Precautions falls M3 PT-IP Subjective Start: 11/12/20 16:25 Freq: NEEDED Status: Active Protocol: Document 11/14/20 10:44 [facility] (Rec: 11/14/20 12:02 [facility] [id number]) Subjective Physical Therapy Visit Type Type Treatment Note Visit Start Time 10:44 Visit Stop Time 11:24 Total Visit Minutes 40 Number of KETTLE WORKER Visits 2 Physical Therapy Visit Comments Patient Comments Pt agreeable to working with therapy. Patient Goals Ready and motivated to go to acute rehab to improve strength and functional mobility. Therapy Pain Assessment Pain Present Pain Present Denied Pain M4 PT-IP Mobility and Gait Start: 11/12/20 16:25 Freq: NEEDED Status: Active Protocol: Document 11/14/20 10:44 [facility] (Rec: 11/14/20 12:02 [facility] [id number]) PT-Transfer Assessment Sit to and From Stand Sit to and from Stand Moderate Assistance,1 Person Assistance Equipment Transfer Assistive Device None,Gait Belt,[place]air Walker Orthotic/Prosthetic Devices or Brace: No Transfers Transfer Destination Bed,Chair Transfer Technique Squat Pivot Transfer Ability Level of Assist Moderate Assistance,1 Person Assistance,Use of Upper Extremities Comments Mobility Comments Pt is impulsive initially but improves stabilization with mobility sit<> stand Mod A x1and transfers x1 person post education and cuing for proper hand placement and verbalizing (therapist vs patient) sequencing HW, LLE, RLE (with trunk wt shift over LLE to assist RLE foot clearance, self repositioning) during stand pivot transfer to L only chair> bed Max A x1. KETTLE WORKER provided support to anterior L knee with cues for quad facilitation to decrease R knee buckling. Pt also performs squat pivot transfer x4 this tx requiring Min- Mod A x1 both R and L with cues for self reposition RLE forward when going R to decrease crossing LEs and reaching across to opposite chair arm rest with RUE, cued to perform in safe slow pacing manner to allow improved trunk stabilization and balance, improvement in stable seated posture descent into chair by end tx. Pt performed 3 squat pivot and 2 SPT transfers w/ HW this tx. Pt was reclined in chair with chair alarm donned and call light and all needs in reach before left. Pt would be a good candidate for acute rehab , is self motivated and making gains. Will continue to assess progress. Gait Assessment Comments Gait Comments squat pivot and stand pivot transfers only using HW this tx. Pt unable to maintain R knee extension, not safe for gait at this time. Stair Climbing Assessment Comments Stair Climbing Comments Unable to assess due to decrease LE strength at this time. PT-Balance Assessment Sitting Balance and Reactions Static Sitting Balance Ability Fair Dynamic Sitting Balance Ability Fair Standing Balance and Reactions Static Standing Balance Ability Poor Dynamic Standing Balance Ability Poor Device Used HW Comments Other Balance Tests/Deviations/Treatment KETTLE WORKER provided counter clockwise : TB wrap to RLE to encourage ankle EV, knee flex/ ext neutral support and quad extension facilitation. Took pic with pt's phone for visual . Believe it did give stability support to RLE during mobility in standing this tx. M5 PT-IP Objective Assessments Start: 11/12/20 16:25 Freq: NEEDED Status: Active Protocol: Document 11/12/20 12:50 [facility] (Rec: 11/12/20 16:36 [facility] [id number]) Orientation Orientation/Cognition Level of Alertness Alert Orientation Name,Place,Situation Safety Awareness Decreased Safety Awareness Comments impulsive Gross Range of Motion Lower Extremity ROM Assessment Within Functional Limits Strength Lower Extremity Strength Assessment Right Impaired Hip 2+/5 Knee 2+/5 Ankle R DF: 1/5 Coordination Assessment Gross Coordination Gross Coordination Impaired Sensation Assessment Sensation Gross Sensation Right LE Impaired Sensation Description Numbness Comments Sensation Comments stated that she can only feel ~ 60-70% on RLE/UE Muscle Tone Muscle Tone WNL No Other Assessments Other Other Assessments BUE/LE hypotonia M6 PT-IP Treatment Start: 11/12/20 16:25 Freq: NEEDED Status: Active Protocol: Document 11/14/20 10:44 [facility] (Rec: 11/14/20 12:02 [facility] [id number]) Physical Therapy Treatment Education Education Provided Safety M7 PT-IP Assessment and Plan Start: 11/12/20 16:25 Freq: NEEDED Status: Active Protocol: Document 11/14/20 10:44 [facility] (Rec: 11/14/20 12:02 SP [id number]) PT Summary Assessment and Plan Potential Rehabilitation Potential Fair Status of Condition at Evaluation Evolving Summary Impairments Pain,ROM,Strength,Balance, Coordination,Sensation,Tone, Cognition,Bed Mobility, Transfers,Gait,Activity Tolerance Progress Towards Goals Progressing Toward Goals,Slow Progress - Other Assessment Summary pt requiring Min-Mod A x1 with mobility during squat pivot transfer and Max A x1 during stand pivot transfer using HW. Recommending squat pivot transfers only with nursing staff. Pt is self motivated and eager to get stronger which will help progress in a acute rehab setting. Goals Bed Mobility Goal Minimal Assistance Transfer Goal Moderate Assistance,Front Wheeled Walker Gait Goal Moderate Assistance,Front Wheel Walker Gait Distance 25 Days to Meet Goals 10 Frequency of Treatment Frequency Of Treatment Once a Day Treatment Plan Physical Therapy Treatment Plan Bed Mobility Training,Transfer Training,Gait Training, Therapeutic Exercise,Balance Retraining,Discharge Planning, Neuromuscular Re-ed, Coordination Retraining,Manual Therapy Other Recommendations and Next Treatment bed mob, transfers, gait when Focus able. Precautions Other Precautions falls Recommendations To Nursing Amount of Assist Needed 1 Person Assist Discharge Recommendations PT Discharge Recommendations Acute Rehab Transportation Needs at Discharge Wheelchair/Cabulance,Stretcher /Ambulance
[2020-11-14 13:03] VITALS: BP 142/79; PULSE 61; RESP 14; TEMP 36.6; O2SAT 98
--- NOTE | 2020-11-14 13:45 | OT.IP.TRT ---
Occupational Therapy Treatment Note M2 OT-IP Current Condition Start: 11/12/20 14:10 Freq: Status: Active Protocol: Document 11/12/20 14:11 [facility] (Rec: 11/12/20 14:37 [facility] [id number]) Occupational Therapy Current Condition Current Condition Evaluation Date 11/12/20 Treatment Diagnosis CVA Diagnosis Onset Date 11/11/20 M3 OT- IP Subjective and Pain Start: 11/12/20 14:10 Freq: Status: Active Protocol: Document 11/14/20 13:48 [facility] (Rec: 11/14/20 14:00 [facility] [id number]) OT- Subjective Occupational Therapy Visit Type Type Treatment Note Visit Start Time 13:16 Visit Stop Time 13:45 Occupational Therapy Visit Comments Patient Comments Pt's present and able to do simulated car transfer with pt and . Patient/Caregiver Goals To go to acute rehab. OT Pain Assessment Pain When Pain Assessed At Rest Pain Present Pain Present Denied Pain M4 OT- IP ADL's Start: 11/12/20 14:10 Freq: Status: Active Protocol: Document 11/14/20 11:06 [facility] (Rec: 11/14/20 11:21 [facility] [id number]) M6 OT- IP Functional Cognition Start: 11/12/20 14:10 Freq: Status: Active Protocol: Document 11/14/20 13:48 [facility] (Rec: 11/14/20 14:00 [facility] [id number]) Cognitive Factors Limiting Selfcare Function Cognitive Comments Cognitive Assessment Comments Pt mainly just impulsive and needing cue to wait for assist . M7 OT- IP Mobility and Balance Start: 11/12/20 14:10 Freq: Status: Active Protocol: Document 11/14/20 13:48 [facility] (Rec: 11/14/20 14:00 [facility] [id number]) OT- Bed Mobility Assessment Supine to Sit Supine to Sit Assist Minimal Assistance Scooting Scooting to Edge of Bed Minimal Assistance OT-Transfer Assessment Sit to and From Stand Sit to and from Stand Moderate Assistance Transfers Transfer Ability Moderate Assistance,Maximum Assistance,1 Person Assistance Technique Transfer Destination Bed,Chair,Wheelchair Transfer Technique Stand Step Pivot Devices Transfer Assistive Devices None,Gait Belt Comments Mobility Comments NURIA to help incorporate RUE for positioning to assist to push on the bed to assist to get up and slight NURIA from sidelying to upright. Educated pt;s regarding RLE positioning needs for transfer to get her foot slightly turned and to support her right knee and move her right foot during transfer to be able to get out of the passenger side of the car. Suggested would be easier to get pt into the back seat on the left side and assist to scoot over to the right side of the car and transfer out to her left. Pt insistent on sitting on the front passenger seat tomorrow. OT- Balance Assessment Sitting Balance and Reactions Static Sitting Balance Ability Good Dynamic Sitting Balance Ability Fair Standing Balance and Reactions Static Standing Balance Ability Poor Dynamic Standing Balance Ability Poor M8 OT- IP Objective Assessments Start: 11/12/20 14:10 Freq: Status: Active Protocol: . M9 OT- IP Assessment and Plan Start: 11/12/20 14:10 Freq: Status: Active Protocol: Document 11/14/20 13:48 [facility] (Rec: 11/14/20 14:00 [facility] [id number]) OT Summary Assessment and Plan Potential Rehabilitation Potential Excellent Analytic Complexity at Evaluation Moderate Summary OT Impairments Range of Motion,Strength, Balance,Coordination,Sensation ,Tone,Functional Mobility,Self -Feeding,Grooming,Dressing, Toileting,Bathing,Toilet Transfers,Shower Transfers, Activity Tolerance Progress Towards Goals Progressing Toward Goals,Slow Progress due to Cognition Assessment Summary Pt a bit impulsive and head strong. Able to go over techniques for car transfers as pt going to [facility] tomorrow and her will be taking her there. Suggested for pt to wear a pad or brief just in case of severe traffic and not being able to get out of the car. In addition best for pt to wear her shoes. Pt going to acute rehab in the morning. Would be safer for pt to have assist on the other end at [facility] to help get her out of the car, but pt and insistent not to do an ambulance as cost may not be covered. Discharge Recommendations OT Discharge Recommendations Acute Rehab Transportation Needs at Discharge Private Vehicle,Wheelchair/ Cabulance
[2020-11-14 15:17] LABS: COVID19 - ADMIT (NP swab/PCR) Negative (Negative)
[2020-11-14 15:35] VITALS: BP 147/86; PULSE 63; RESP 16; TEMP 37.3; O2SAT 95
--- NOTE | 2020-11-14 16:09 | CM.DPNOTE ---
Addendum entered by Layne Salguero, CARLO 11/14/20 16:17: In addition, [place] [facility] willing to admit as b/u plan, would need insurance auth Original Note: DCP Note Worked on DCP throughout the day. Contacted Michela, [facility] first to check on status, she still had to review w/the physician and was not able to work on auth this AM Faxed referral to [facility], spoke w/ Asher P# [phone] F# [phone]. Patient was accepted for a bed tomorrow and Asher secured a 7 day authorization from patient's insurer (insurance is contacted weekly to discuss new auth). Asher expects patient will be admitted for approx 21-24 days based on current presentation [facility] stating they placed call to insurer and was told an out of state hospital could not be authorized (?) Updated patient and spouse, very pleased to have an acute rehab option. Spouse will transport tomorrow AM. Dr Wilkes made aware and will plan to complete the DC tomorrow AM Requested MINGO Valentino to update patient's COVID-19 PCR Contacted Michela at [facility] acute rehab, her physician had approved by this time and she had also gotten authorization. Patient/spouse had already chosen [facility] Plan: DC anticipated tomorrow morning, spouse to transport via private auto to [facility] inpatient rehab unit [facility]
--- NOTE | 2020-11-14 16:47 | PM.PN.1 ---
Subjective Subjective Interval history: Patient continues to have right upper extremity weakness, she has right lower extremity weakness, patient has questions about whether not tPA would of been beneficial had her recent stroke been discovered sooner. Explained to the patient as she is outside of the window given her earlier symptoms it is highly unlikely she would have been a tPA candidate. Patient is awaiting inpatient rehab. She has a bed at [facility] and will be transferred to [facility] acute Rehab tomorrow. Exam Vital Signs (past 8 hours): - 11/14/20 10:40 11/14/20 13:03 11/14/20 15:35 Temperature 98.0 F 97.9 F 99.2 F Pulse Rate 63 61 63 Respiratory Rate 15 14 16 Blood Pressure 157/90 H 142/79 H 147/86 H Pulse Oximetry 98 98 95 Oxygen Delivery Method Room Air Oxygen Flow Rate 0 Narrative Exam Narrative: Pleasant female sitting in a chair in no obvious distress HENMI Other: Normocephalic atraumatic, extraocular muscles are intact, sclerae anicteric, there is no facial weakness Resp Other: Lungs: Clear to auscultation Cardio Other: Cardiac exam: Regular rate and rhythm normal S1 and GI Other: Abdomen: Soft and nontender Neuro Other: Neuro exam: Cranial nerves are intact, sensation is intact, patient's right upper extremity weakness is 3/5, right lower extremity 4/5 Extrem Other: No edema Objective Labs Result Diagrams: 11/13/20 05:36 11/13/20 05:36 Labs: Laboratory Results - last 24 hr 11/14/20 14:25 SARS-CoV-2 (PCR) Negative [facility]END[facility] TO [facility] Medical History (Updated 11/11/20 @ 20:27 by Bj Mcgregor MD) No significant past medical history Surgical History (Updated 11/11/20 @ 20:27 by Bj Mcgregor MD) No significant past surgical history Family History (Updated 11/11/20 @ 20:28 by Bj Mcgregor MD) Mother CVA (cerebral vascular accident) Father CAD (coronary artery disease) Hip fracture Other Hyperlipidemia Social History household members: spouse Smoking Status: Former smoker alcohol intake: current Assessment & Plan Assessment & Plan narrative: 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 Bentley only significant stenosis was in the left vertebral artery, v1, near subclavian, rest of brain had good collateral flow, discussed with teleneurologist and no IR or surgical intervention indicated as there is adequate collaterals -contine dual antiplatelet for 21 days with asa/plavix, then lifelong aspirin, continue high dose atorvastatin ------patient declining statin, discussed at length the benefit of statin for reducing stroke risk, she will think about it -ordered for a1c and lipids for risk stratification -ordered for echo -on telemetry to monitor for arrhythmia -ordered for PT/OT/speech therapy -dispo pending therapy evaluation -continue lorazepam metoclopramide, ondansetron, meclizine, Phenergan as needed. -no further nausea -patient is considering statin -as this is likely an acute embolic event would recommend outpatient event monitor/results monitor to look for intermittent atrial fibrillation 2. Left Vertebral Artery Stenosis -Lipids ordered -aspirin, plavix ordered -continue dual anti-platelet therapy 3. UTI with urinary retention -UA positive, with urine cultures pending -ceftriaxone ordered, follow up final cultures -she was found to have mild urinary retention, but decline straight cath or aguilar, has been able to urinate and denies significant abdominal discomfort Proxy is her Bryce Matthew DVT ppx: lovenox 40u sc CODE: FULL She is medically stable for discharge and attempt is being made at inpatient acute rehab for more intensive therapy. I have utilized all available immediate resources to obtain update and review the patient's current medications Quality Quality VTE Deep Vein Thrombosis/Pulmonary Embolism Present on Admission: No
--- NOTE | 2020-11-14 16:59 | PC.NURSE ---
SHIFT Report received, care assumed 1530. Pt. A&Ox4. VSS. Demonstrates right-sided weakness; no other neuro symptoms. NIH 4. Denies pain.
[2020-11-14 19:30] VITALS: BP 129/81; PULSE 58; RESP 15; TEMP 37.3; O2SAT 95
[2020-11-14 23:05] VITALS: BP 124/75; PULSE 58; RESP 18; TEMP 36.6; O2SAT 97
[2020-11-15 05:00] VITALS: BP 131/77; PULSE 56; RESP 18; TEMP 36.4; O2SAT 95
--- NOTE | 2020-11-15 07:57 | PM.DS.1 ---
History of Present Illness History of Present Illness Chief complaint: REALLY DIZZY NUMBNESS RIGHT SIDE THROWING UP Narrative: This is a 64 year old female with no significant PMH who presents to the ED this evening with intractable N/V and Vertigo. She is also having some right arm weakness so the immediate concern was that she might be having a brainstem CVA. The onset was quite acute, while she was walking around her camp site at 4:00 p.m. today she was suddenly exquisitely nauseated and mildly vertiginous. Her brain MRI and CT scan shows no evidence of stroke. 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 Her mother had a stroke when she was much older. She has a strong family history of hyperlipidemia but she has no past medical history herself. She and her have been on the road camping from their home in [place] on the way to [place] this summer when they stopped here and she became ill. She has never had a stroke, hypertension, known to have hyperlipidemia or coronary disease in the past. She has been dosed with metoclopramide, meclizine, lorazepam, ondansetron without resolution of her nausea. Lorazepam seemed to be the most effective as she did look relaxed and asleep although she says that she never did fall asleep. The emergency department physician did speak with the on-call stroke neurologist who initially considered tPA but then after reviewing her exam decided that she should be observed tonight, receive aspirin and be treated as an acute vertigo patient. She has had no abdominal pain, diarrhea, GI bleeding or excess alcohol use. She had half a beer today at lunch and 1 beer yesterday. Her habit is an occasional beer or glass of wine. Discharge Providers Provider Date of admission: 11/11/20 20:04 Discharge Date: 11/15/20 Consults: 11/12/20 09:58 Consult to Discharge Planning Routine Comment: Consult to Occupational Therapy Evaluate & Treat Comment: Physician Instructions: Evaluate and treat Consult to Physical Therapy Evaluate & Treat Comment: Physician Instructions: Evaluate and Treat Consult to Speech Therapy Evaluate & Treat Comment: Physician Instructions: Evaluate and treat 11/12/20 10:01 Consult to Occupational Therapy Evaluate & Treat Comment: Physician Instructions: Evaluate and treat Consult to Physical Therapy Evaluate & Treat Comment: Physician Instructions: Evaluate and Treat Consult to Speech Therapy Evaluate & Treat Comment: Physician Instructions: Evaluate and treat 11/12/20 11:55 Consult to Occupational Therapy Evaluate & Treat Comment: Physician Instructions: Evaluate and treat Consult to Physical Therapy Evaluate & Treat Comment: Physician Instructions: Evaluate and Treat Discharge provider: Carolina Wilkes MD Summary Hospital Course Discharge Diagnosis: 1. Acute brainstem CVA with right hemiplegia nausea and vomiting 2. Left vertebral artery stenosis 3. Urinary tract symptoms, final urine culture is negative, antibiotics discontinued Hospital Course: Patient was admitted to the hospital with right-sided numbness and tingling. She subsequently developed significant weakness of the right arm and right leg. An MRI 720 showed a brainstem infarct. Tele stroke discussed with of us treatment given her new symptoms. They recommended stat imaging of the brain. To look for intervenable large vessel occlusion. The only significant stenosis was left vertebral artery B1 near subclavian. There was good collateral flow. The tele neurologist and IR surgical intervention indicated there was adequate collaterals and therefore tPA would not be indicated. Place shunt was placed on dual anti-platelet therapy with aspirin and Plavix. A cardiac echo was obtained which showed no evidence of embolic focus. The patient remained on telemetry to monitor for arrhythmia as. She continued evaluation with PT OT and speech. Her nausea improved. Patient was placed on a statin. She made slow but steady progress. She was referred to inpatient rehab at [facility] and will be transferred to rehabilitation today. Echocardiogram revealed left ventricle normal size and wall thickness, ejection fraction 60 65%. No obvious left ventricular apical clot was seen. Right ventricle was normal insight. There was mild tricuspid regurgitation. The ascending aorta was mildly enlarged. There was no significant atherosclerotic plaque in the aortic arch seen. MRI done on November 12 revealed a prominent appearance of restricted diffusion area within the medulla/brainstem consistent with an acute ischemic appearing event acute compared to her prior exam. There is no superimposed hemorrhage. This was felt to be a new focus of ischemia. Patient's MRI november 11 showed no acute infarction/ischemia. Status at Discharge Cognitive/behavioral status at discharge: oriented Exam Vital Signs (past 8 hours): - 11/15/20 05:00 Temperature 97.5 F L Pulse Rate 56 L Respiratory Rate 18 Blood Pressure 131/77 Pulse Oximetry 95 Oxygen Delivery Method Room Air Oxygen Flow Rate 0 Narrative Exam Narrative: Pleasant female resting comfortably in no obvious distress [facility] Other: HEENT: Normocephalic atraumatic, extraocular muscles are intact, no facial droop Resp Other: Lungs clear to auscultation Cardio Other: Cardiac exam: Regular rate rhythm normal S1-S2 GI Other: Abdomen: Soft nontender nondistended Neuro Other: Neuro exam: Patient's cranial nerves are intact, strength is pretty good of 4/5 in the right upper extremity 4/5 in the right lower extremity which is improved since even yesterday. NIH score is about 0-1 Objective Labs Result Diagrams: 11/13/20 05:36 11/13/20 05:36 Labs: Laboratory Results - last 24 hr 11/14/20 14:25 SARS-CoV-2 (PCR) Negative [facility] Medical History (Updated 11/11/20 @ 20:27 by Bj Mcgregor MD) No significant past medical history Surgical History (Updated 11/11/20 @ 20:27 by Bj Mcgregor MD) No significant past surgical history Family History (Updated 11/11/20 @ 20:28 by Bj Mcgregor MD) Mother CVA (cerebral vascular accident) Father CAD (coronary artery disease) Hip fracture Other Hyperlipidemia Social History household members: spouse Smoking Status: Former smoker alcohol intake: current Discharge Assessment & Plan Assessment and Plan Assessment: Acute brainstem infarct , residual right upper extremity right lower extremity weakness Left vertebral artery stenosis No evidence of urinary tract infection Plan of Treatment: Transfer to acute rehabilitation for ongoing care Given there is a high probability of an acute embolic event it is recommended that the patient get a ZIO patch for outpatient arrhythmia monitoring. This can be arranged at acute inpatient rehab or when the patient returns home to [place] Discharge Plan Discharge Plan Patient Disposition: Home Discharge orders & Medications Prescriptions: New atorvastatin [Lipitor] 20 mg Tablet 80 mg PO BEDTIME Qty: 30 RF: 0 clopidogrel 75 mg Tablet 75 mg PO DAILY 18 Days RF: 0 aspirin 81 mg Tablet,Delayed Release (Dr/Ec) 81 mg PO DAILY Qty: 30 RF: 0 ondansetron 4 mg Tablet,Disintegrating 4 mg PO Q8HR PRN (Reason: Nausea And Vomiting) Qty: 5 RF: 0 enoxaparin [Lovenox] 40 mg/0.4 mL Syringe 40 mg SUBCUT DAILY Qty: 30 RF: 0 ondansetron HCl (PF) 4 mg/2 mL Solution 4 mg IV Q8HR PRN (Reason: Nausea And Vomiting) Qty: 5 RF: 0 Discharge Health Status Multidrug resistant organism: No MDRO Diet/Activity/Treatments Diet: Low-sodium Other treatments: outpatient event monitor/Zio patch recommended to r/o arrhythmia Discharge Data Attending Provider: Bj Mcgregor Ector Quality VTE Deep Vein Thrombosis/Pulmonary Embolism Present on Admission: No
[2020-11-15 08:00] VITALS: BP 148/83; PULSE 62; RESP 15; O2SAT 95
--- NOTE | 2020-11-15 08:39 | OT.IPNOTE ---
Spoke to WRECKING SUPERVISOR regarding various options for car transfer for pt. WRECKING SUPERVISOR to touch base with pt and prior to them leaving today.
[2020-11-15] MEDS: CLOPIDOGREL 75 MG TABLET PO (08:40)
[2020-11-15] MEDS: ASPIRIN EC 81 MG TABLET PO (08:40)
--- NOTE | 2020-11-15 09:00 | PT-IP ANOTE ---
Pt states they are getting ready to d/c and feels she has no needs this morning before transfer to [facility].
--- NOTE | 2020-11-15 11:34 | CM.DPNOTE ---
DC Note Patient has been DC this morning to the acute inpatient rehabilitation unit, [facility]. Placed call to Asher, suzi, faxed: signed med list, DC Summary and updated COVID-19 test results. No other information required. Nurse to Nurse # provided to RN Chelsy Patient/spouse remain agreeable to plan, spouse to transport patient to [facility] this morning. JOCELIN
== END 2020-11-15 09:30 | DRG 65 ==
LOC: ED 19:44 → AC 11-12 07:17
PROVIDERS: Internal Medicine; Admitting Provider Family Medicine; Emergency Provider Emergency Medicine; Visit Provider Family Medicine
DX: I63.212 Cerebral infarction due to unspecified occlusion or stenosis of left vertebral artery (principal); G81.91 Hemiplegia, unspecified affecting right dominant side; R29.708 NIHSS score 8; R33.9 Retention of urine, unspecified; R11.0 Nausea; R42 Dizziness and giddiness; Z87.891 Personal history of nicotine dependence; Z20.822 Contact with and (suspected) exposure to COVID-19
CPT/HCPCS: 36415; 70450; 70496; 70498; 70548; 70553; 80048; 80053; 80061; 80305; 81003; 81015; 82550; 82962; 83036; 83690; 84443; 84484; 85025; 85027; 85610; 85730; 87086; 87635; 93005; 93010; 93306; 96374; 96375; 96376; 97162; 97167; 97530; 97535; 99285; C9803; A9579; C9113; J0696; J1650; J2060; J2405; J2765